=== PATIENT | male | born 1955 | race Caucasian/White ===

== ENCOUNTER 2024-02-05 11:51 | Inpatient (IN) | payer MEDICARE, OTHER, SELFPAY ==
[2024-02-05] VITALS (18 sets, daily range): BP systolic 121–148; BP diastolic 60–92; BMI 21.7
[2024-02-05] MEDS: LOW STRENGTH ASPIRIN 81 MG PO (09:11)
[2024-02-05] MEDS: NSS 218 ML IV (09:22)
--- NOTE | 2024-02-05 10:29 | ITS.CL.CATH ---
Shop Assistant - Catheterization
Cardiac Catheterization
Procedure Report:
CARDIAC CATHETERIZATION REPORT
Date of Procedure: 02/05/2024
Referring: Tony Borja MD
Indication: High risk stress test with known CAD and risk factors
HEMODYNAMIC DATA
AO: 121/62
LV: 121/10
LEFT VENTRICULOGRAPHY: The left ventricle is mildly dilated. There is moderate inferoapical hypokinesis. The LVEF is 46%
CORONARY ANGIOGRAPHY
Dominance: Right
Left Main: 50-60% distal stenosis
LAD: The LAD is calcified with 50% proximal and 70% mid stenoses. The distal LAD is free of disease. D1 is moderate in size with trivial luminal disease. D2 is slightly larger than D1 with 30% ostial stenosis
Circumflex: There is a medium sized ramus intermedius with mild disease. There is 40% ostial circumflex stenosis. There is 50% mid circumflex stenosis distal to the origin of a small OM1 and proximal to the takeoff of a medium sized OM 2. The
circumflex terminates with a very small OM 3.
RCA: The RCA is a large dominant severely calcified vessel. There are 2 stents placed at a hospital in [place] in 2011 and the mid RCA. It is not possible to know with certainty whether there is a gap between the stents due to the severity of
the calcification. There is 99% stenosis in the mid RCA possibly at the gap segment with MARQUISE grade II flow into a large PDA.
The RCA terminates with two moderate size posterolateral branches.
Closure Device: None-the procedure was performed via the right radial artery. The Ziggy's test was normal prior to the procedure.
Radiation (mGy): 225
DAP (cm2.Gy): 15.1
Fluoroscopy time: 2.0 minutes
CONCLUSIONS
1: Left ventricular enlargement with moderate inferoapical hypokinesis with EF 46%
2: Severe multivessel CAD as described
3. Recommend inpatient CABG with grafting of LAD, either D1 or D2, OM 2, and RPDA
Copy to: Tony Borja MD, Cristina Emerson MD
Kofi Sun MD, FAC, [facility]
[2024-02-05] MEDS: NORVASC 10 MG PO (12:09)
--- NOTE | 2024-02-05 12:48 | CONSULT.CT ---
Consultation
-
Date/Time Consultation Requested: 02/05/24
Date/Time Consultation Performed: 02/05/24 1300
Requesting Provider: Dr. Kofi Sun MD.
Performing Provider: Violeta Wilson PA-C
Reason for Consultation: Severe MV CAD evaluate for coronary artery revascularization
Patient History
Physicians
Family Physician: Dr. Cristina Emerson MD.
Outpatient Chucking And Sawing Machine Operator: Dr. Tony Borja MD.
Inpatient Chucking And Sawing Machine Operator: [facility]-Dr. Kofi Sun MD.
History of Present Illness
Please note this dictation was performed using the aid of a language line due to the fact that the patient is [place]-speaking only.
Patient is extremely pleasant 68-year-old male with a PMH significant for CAD s/p PR and mult. MILES, PR 05/14/2012 requiring MILES x 2 RCA, HTN, HLD, and Tobacco abuse (current everyday smoker 1PPD x 40 yrs) who presents to [facility] today
02/05/24 for elective outpatient cardiac catheterization.
Patient follows with Dr. Tony Borja MD. of cardiology. Patient was seen in the office by Dr. Borja on 01/27/24 after an abnormal exercise stress echo. Patient formally denies any exertional chest discomfort or shortness of breath. However,
per chart review it states he has been experiencing exertional chest discomfort as well as exertional shortness of breath. He was scheduled for an elective outpatient cardiac catheterization at [facility] for today.
Subsequent cardiac catheterization revealed multivessel coronary artery disease. Please see results of diagnostic studies below. CT surgery was consulted for coronary artery revascularization. In speaking with the patient, it appears that he at
some point underwent questionable vascular surgery/vein stripping. Patient also states that prior to this hospitalization he was being worked up by GI for his elevated transaminases with an AST of 89, and ALT of 95, and alk phos of 123. He states
that he was told he had an enlarged liver.
Cardiac catheterization 02/05/24: [facility]
EF 46%
LM: 50-60% distal
LAD: 50% prox, 70% mid.
D1: trivial LI
D2: 30% ostial
RI: medium sized with mild disease
LCx: 40% ostial, 50% mid
RCA: MILES x2 to mid RCA. 99% mid RCA stenosis at the gap segment with MARQUISE grade II flow into large PDA
EK02/05/24
SB (57) 1st AVB, PAC's, non-specific intra-ventricular conduction block
Stress Echo 01/27/24: Tony Borja MD.
EF 55-60%
No segmental wall motion abnormalities with akinesis at peak exercise of inferior wall hypokinesis of inferior lateral wall.
Overall imaging part of the stress test is positive for ischemia
Past Medical History
Past Medical History: Other (HTN)
H/o CAD s/p PR and mult MILES
PR 05/14/2012 requiring MILES x2 RCA
HTN/HLD
Tobacco abuse, current smoker, 1 PDD x40 yrs
Past Surgical History
PCI with MILES x 2 RCA 05/14/2012 [facility]
Appendectomy
Questionable vein stripping left leg > right
Dental History
Noncontributory
Family History
Mother: at Age (80) and Cause of (Cardiac-unknown to what extent)
Father: at Age (77)
Family Medical History: CAD
Social History
Alcohol: Occasional (2-3 vodka/wk)
Drug: None
Tobacco: Smoker (Current everyday smoker (1 PPD x 40+ yrs).)
Personal: Other ( from . Lives with roommate. Has 1 daughter)
Living: With Roomate
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
Allergies
Allergy/AdvReac Type Severity Reaction Status Date / Time
No Known Drug Allergies Allergy nkda Verified 06/06/24 09:29
Home Medications
�Medication �Instructions �Recorded �Confirmed �Type
amlodipine 10 mg tablet 10 mg PO DAILY Blood Pressure 02/05/24 02/05/24 History
aspirin 81 mg chewable tablet 81 mg PO DAILY Blood Clot 02/05/24 02/05/24 History
Prevention/Tx
atorvastatin 40 mg tablet 40 mg PO QPM High Cholesterol 02/05/24 02/05/24 History
cholecalciferol (vitamin D3) 50 50 mcg PO DAILY Supplement 02/05/24 02/05/24 History
mcg (2,000 unit) tablet (Vitamin
D3)
folic acid 1 mg tablet 1 mg PO DAILY Supplement 02/05/24 02/05/24 History
metoprolol succinate 50 mg 50 mg PO DAILY Blood Pressure 02/05/24 02/05/24 History
tablet,extended release 24 hr
ramipril 10 mg tablet 10 mg PO BID Blood Pressure 02/05/24 02/05/24 History
sertraline 100 mg tablet 100 mg PO DAILY Depression 02/05/24 02/05/24 History
vitamin B complex 1 cap PO DAILY Supplement 02/05/24 02/05/24 History
Review of Systems
-
History Source: Patient
General: Denies Fever, Weight Gain, Weight Loss or Fatigue
HEENT: Denies Visual Changes, Dysphagia or Hoarseness
Respiratory: Reports Cough; Denies SOB, WIGGINS, Asthma or PND
Cardiac: Reports CAD; Denies Chest Pain, Known Vascular Disease, Palpitations, Diaphoresis or Edema
Abdomen/GI: Reports Ulcers (Resolved-treated medically); Denies Abdominal Pain, Reflux, Indigestion, Nausea, Vomiting or BRBPR
: Denies Dysuria, Frequency, Hematuria or Nocturia
Musculoskeletal: Denies Myalgias, Arthralgias or Joint Pain
Skin: Denies Rash
Neurological: Denies CVA, TIA, Headaches, Syncope or Seizures
Vascular: Reports Claudication and PVD
Physical Exam
Vital Signs
Temp 97.8 F 02/05/24 09:01
Pulse 51 02/05/24 12:23
Resp Rate 19 02/05/24 08:48
Blood pressure 126/61 02/05/24 12:23
Blood pressure extremity used: Left upper arm 02/05/24 10:16
Position: Lying 02/05/24 10:16
MAP (cuff-Uzma Monitor) 83 02/05/24 12:23
SaO2 96 02/05/24 12:23
Oxygen Mode of Delivery Room air 02/05/24 10:16
Can the patient verbally communicate their pain? Yes 02/05/24 10:16
Actual Weight 160 lb 0.889 oz 02/05/24 09:14
Body Mass Index (BMI) 21.7 02/05/24 09:14
Diagnostic Studies
Cardiac catheterization 02/05/24: [facility]
EF 46%
LM: 50-60% distal
LAD: 50% prox, 70% mid.
D1: trivial LI
D2: 30% ostial
RI: medium sized with mild disease
LCx: 40% ostial, 50% mid
RCA: MILES x2 to mid RCA. 99% mid RCA stenosis at the gap segment with MARQUISE grade II flow into large PDA
EK02/05/24
SB (57) 1st AVB, PAC's, non-specific intra-ventricular conduction block
Stress Echo 01/27/24: Tony Borja MD.
EF 55-60%
No segmental wall motion abnormalities with akinesis at peak exercise of inferior wall hypokinesis of inferior lateral wall.
Overall imaging part of the stress test is positive for ischemia
Exam
General: Well Developed, Well Nourished and No Apparent Distress
HEENT: Normocephalic, Moist Mucous Membranes, Atraumatic, PERRLA and EOMI
Neck: Trachea Midline; Negative Carotid Bruit or Mass
Respiratory: Clear; Negative Wheezes, Crackles, Rhonchi or Accessory Muscle Use
Cardiac: S1/S2 and Regular Rhythm (Sinus bradycardia/); Negative Murmur, Rub or Gallop
GI: Non Tender, Non Distended and Normal Bowel Sounds
Rectal: Deferred by Provider
Skin: Warm and Dry; Negative Rash
Neuro: AO x 3, No Motor Deficits and CN X-XII Intact
Extremities: Negative Upper Level Edema, Lower Level Edema, Upper Level Cyanosis, Lower Level Cyanosis, Upper Level Clubbing or Lower Level Clubbing
Psych: Calm
Assessment / Plan
-
Assessment:
69 y/o male with PMH significant for:
H/o CAD s/p PR and mult MILES
PR 05/14/2012 requiring MILES x2 RCA
HTN/HLD
Tobacco abuse, current smoker, 1 PDD x40 yrs
Now newly diagnosed with:
Severe MV CAD
Abnormal stress echocardiogram
EF 46%
elevated LFT's/transaminases (AST 89, ALT 95, Alk Phos 123), enlarged liver
? vascular procedure/vein stripping (left leg > right)
Plan:
Patient's case will be discussed with attending physician Dr. Luis Daniel Tellez MD.
Preoperative cardiothoracic surgery workup will be initiated.
We will also add on bilateral saphenous vein mapping, CT scan of the chest abdomen and pelvis given enlarged liver, and PFTs given smoking history.
STS risk stratification score will be calculated.
Further workup regarding procedure will be determined after attending physicians full review
[2024-02-05 14:11] LABS: Hematocrit 40.1 % (39.0-52.0); Hemoglobin 13.5 g/dL (13.0-18.0); Mean Corp Hgb Conc. 33.7 g/dL (33.0-37.0); Mean Corpuscular Hgb 31.4 pg (27.0-31.0); Mean Corpuscular Volume 93.3 fL (80.0-94.0); Mean Platelet Volume 9.3 fL (7.4-10.4); Platelet Count 253 10^3/uL (130-400); Red Cell Dist. Width 12.8 % (11.5-14.5); White Blood Cell Count 5.4 10^3/uL (4.8-10.8)
[2024-02-05 14:22] LABS: APTT 28.6 Sec (23.4-35.0)
[2024-02-05] MEDS: HEPARIN 25000 UNITS/250 ML IV (15:01)
[2024-02-05 15:38] LABS: B.E. -1.6 mmol/L; HCO3 21.7 mmol/L (21-28); O2 Saturation % 96.9 % (94-98); PCO2 32 mmHg (35-48); PO2 77 mmHg (83-108); pH 7.44 (7.35-7.45)
[2024-02-05 16:01] LABS: ALT (SGPT) 113 U/L (0-50); AST (SGOT) 100 U/L (17-59); Albumin 3.9 g/dl (3.5-5.0); Alkaline Phosphatase 112 U/L (38-126); Blood Urea Nitrogen 13 mg/dl (9-20); Calcium 9.8 mg/dl (8.4-10.2); Carbon Dioxide 23 mmol/L (22-30); Chloride 107 mmol/L (98-107); Direct Bilirubin 0.4 mg/dl (0.0-0.4); Estimated Creatinine Clearance 118 ml/min; Glucose 91 mg/dl (70-99); Potassium 4.1 mmol/L (3.5-5.1); Sodium 138 mmol/L (135-145); Total Bilirubin 0.7 mg/dl (0.2-1.3); Total Protein 6.8 g/dl (6.3-8.2); eGFR > 60.00
[2024-02-05] MEDS: LIPITOR 40 MG PO (17:53)
[2024-02-05] MEDS: ALTACE 10 MG PO (19:51)
[2024-02-05 21:51] LABS: APTT 35.6 Sec (23.4-35.0)
--- NOTE | 2024-02-05 22:31 | PTCARENOTE ---
Stateless speaking at baseline- language line used. pt verbalized understanding. SB on the monitor. ambulating as self. heparin gtt running as documented. R radial CDI
[2024-02-06] VITALS (7 sets, daily range): BP systolic 121–145; BP diastolic 62–86; BMI 21.6
[2024-02-06 00:23] LABS: INR 0.98
[2024-02-06 04:56] LABS: Hematocrit 36.7 % (39.0-52.0); Mean Corp Hgb Conc. 35.4 g/dL (33.0-37.0); Mean Corpuscular Hgb 31.5 pg (27.0-31.0); Mean Corpuscular Volume 88.9 fL (80.0-94.0); Mean Platelet Volume 9.3 fL (7.4-10.4); Platelet Count 226 10^3/uL (130-400); Red Blood Cell Count 4.13 10^6/uL (4.70-6.10); Red Cell Dist. Width 12.5 % (11.5-14.5); White Blood Cell Count 5.2 10^3/uL (4.8-10.8)
[2024-02-06 05:09] LABS: APTT 38.4 Sec (23.4-35.0)
[2024-02-06 05:22] LABS: Blood Urea Nitrogen 11 mg/dl (9-20); Calcium 9.2 mg/dl (8.4-10.2); Carbon Dioxide 22 mmol/L (22-30); Chloride 107 mmol/L (98-107); Estimated Creatinine Clearance 118 ml/min; Glucose 102 mg/dl (70-99); HDL Cholesterol 81 mg/dl; LDL Cholesterol, Calculated 38 mg/dl; Potassium 3.9 mmol/L (3.5-5.1); Sodium 137 mmol/L (135-145); Total Cholesterol 139 mg/dl (50-199); Triglyceride 104 mg/dl (10-149); Very Low Density Lipoprotein 20 mg/dl (0-30); eGFR > 60.00
[2024-02-06] MEDS: NORVASC 10 MG PO (08:57)
[2024-02-06] MEDS: FOLVITE 1 MG PO (08:57)
[2024-02-06] MEDS: LOW STRENGTH ASPIRIN 81 MG PO (08:57)
[2024-02-06] MEDS: TOPROL XL 50 MG PO (08:58)
[2024-02-06] MEDS: ALTACE 10 MG PO ×2 (09:01→19:33)
[2024-02-06] MEDS: ZOLOFT 100 MG PO (09:02)
[2024-02-06 09:47] LABS: Glycohemoglobin (HgbA1c) 5.4 % (4.0-5.6)
--- NOTE | 2024-02-06 09:56 | W.PN.CD ---
Today's Communication / Plan
-
Cont medications
Preop testing
Impression / Plan
-
S: 68-year-old male with a PMH significant for CAD s/p [place] and mult. MILES, [place] 05/14/2012 requiring MILES x 2 RCA, HTN, HLD, and Tobacco abuse (current everyday smoker 1PPD x 40 yrs) who presents to [facility] today 02/05/24 for elective
outpatient cardiac catheterization. He was found to have multi-vessel CAD and CTS has been consulted for possible CABG with grafting of LAD, either D1 or D2, OM 2, and RPDA.
CAD s/p PCI and now multivessel
- possible CABG February 08
- cont statin aspirin and metoprolol
HTN
- metoprolol amlodipine
- Ramipril will need to be held prior to CTS
HLD
- statin
Elevated LFTs
- cont monitoring
Subjective
Feels OK used hourly sign language interpreter line all questions answered
Physical Exam
Vital Signs/Labs
Vital Signs
Temp Pulse Resp BP Pulse Ox
98.0 F 61 16 145/74 98
02/06/24 07:55 02/06/24 07:56 02/06/24 07:55 02/06/24 07:56 02/05/24 22:26
02/05/24 02/06/24 02/07/24
06:59 06:59 06:59
Actual Weight 160 lb 0.889 oz
02/06/24 04:47
02/06/24 04:47
PT Cancelled 02/06/24 04:15
INR Cancelled 02/06/24 04:15
APTT 38.4 Sec (23.4-35.0) H 02/06/24 04:47
Triglycerides 104 mg/dl (10-149) 02/06/24 04:47
LDL Cholesterol, Calc 38 mg/dl 06/07/24 04:47
VLDL Cholesterol, Calc 20 mg/dl (0-30) 02/06/24 04:47
HDL Cholesterol 81 mg/dl 02/06/24 04:47
Physical Exam
Constitutional: No acute distress
EENT: Anicteric
Cardiovascular: Rhythm & rate is regular and Pedal edema is absent
Respiratory: Respiratory effort normal and Lungs clear to auscul.
GI: Soft
Neuro/Psych: AO x 3
Data Reviewed
-
Date of Service: February 06, 2024
Medical Decision Making: Reviewed Test Results
EKG: Tracing Personally Visualized and interpreted (sr)
Echo: Report Reviewed by me
Labs: Labs Reviewed by me
--- NOTE | 2024-02-06 13:26 | W.PN.UPDATE ---
Addendum entered and electronically signed by Luis Daniel Tellez MD 02/06/24 15:42:
CARDIAC SURGERY ATTENDING:
I had a long conversation with Mr. Lucille Vergara at his bedside this afternoon. This was aided with paraprofessional interpreter #[id number]. I reviewed his surgical pathology, the proposed operative interventions, the associated perioperative risks (including, but
not limited to, , stroke, AR, arrhythmia, PNA, RADU/F, bleeding, infection, and need for additional surgery), the expected in-hospital postprocedural course, and expected outpatient recovery. His STS risks are as outlined below. I agree with
my interventional cardiology colleagues that ideal revascularization would include his LAD, OM 2, PDA, and either D1 or D2. However, the patient has significant potential conduit issues. His left lower extremity greater saphenous vein has been
previously removed. His right lower extremity greater saphenous vein on mapping is quite small with sizes ranging from 0.11 to 0.23 cm. His left Ziggy did demonstrate potential for left radial arterial use, which may be an ideal candidate as a
graft to his PDA, but will require additional assessment preoperatively. I have ordered a left upper extremity radial artery ultrasound. Alternatively, JAREK use can be considered, but given his COPD, in situ JAREK to his RCA may not be possible. I
have discussed these conduit concerns with my interventional cardiology colleagues. We agreed that grafting to his LAD and PDA are the most critical. If intraoperatively, conduit concerns limit bypass to only these 2 vessels, his additional CAD
could potentially be managed with PCI.
I have scheduled him for surgery on 02/09/2024.
Thank you for the opportunity to participate in the care of this patient.
Luis Daniel Tellez MD
[phone]
Original Note:
Update Note
Progress Note Update
Patient scheduled for Surgery on FridayFebruary 08, with Dr. Tellez. Consent obtained
Procedure Type:�Isolated CABG
PERIOPERATIVE OUTCOME ESTIMATE %
Operative Mortality 0.71%
Morbidity & Mortality 3.77%
Stroke 0.512%
Renal Failure 0.349%
Reoperation 2.37%
Prolonged Ventilation 1.72%
Deep Sternal Wound Infection 0.09%
Long Hospital Stay (>14 days) 1.84%
Short Hospital Stay (<6 days)* 62.5%
Clinical Summary
Planned Surgery: Isolated CABG, Urgent, First cardiovascular surgery
Demographics: 69 year old, White, male, 72.6kg, 183cm, BMI: 21.7 kg/m�
Lab Values: Creatinine: 0.5 mg/dL, Hematocrit: 36.7%, WBC Count: 5.2 10�/�L, Platelet Count: 388109 cells/�L
Substance Abuse: Current smoker, Alcohol use: 2-7 drinks/week
Risk Factors / Comorbidities: Hypertension, Family Hx of CAD
Pulmonary RF: Mild CLD
Cardiac Status: Ejection Fraction = 51%
Coronary Artery Disease: 3 vessels diseased, Left Main Stenosis >=50%, Unstable Angina
Valve Disease: Mild AR, Moderate MR, Trivial/Trace TR
[2024-02-06] MEDS: HEPARIN 25000 UNITS/250 ML IV (14:12)
--- NOTE | 2024-02-06 14:52 | CM ---
Chart reviewed. Patient is [place] speaking, trap operator IPAD was used to communicate with the patient. Patient is independent of ADLS, lives alone in a apartment on the 2nd floor, full flight of stairs to get to the 2nd floor, 0 DME. Patient is
going for a CABG 02/08. Patient has a supportive friend who lives in the apartment complex and an ex who may be able to check in on the patient. Reviewed preoperative and postoperative instructions and restrictions, along with showering
guidelines. Gave patient the cardiac surgery book. Patient may be outside of the driving radius for CT Transitional RN, so may need VN. Plan is for the patient to return to his apartment. CM to follow
[2024-02-06] MEDS: LIPITOR 40 MG PO (17:55)
[2024-02-07] VITALS (7 sets, daily range): BP systolic 103–122; BP diastolic 60–78; BMI 21.6
[2024-02-07 02:50] LABS: Hematocrit 38.1 % (39.0-52.0); Mean Corp Hgb Conc. 34.1 g/dL (33.0-37.0); Mean Corpuscular Hgb 31.3 pg (27.0-31.0); Mean Corpuscular Volume 91.8 fL (80.0-94.0); Mean Platelet Volume 9.6 fL (7.4-10.4); Platelet Count 230 10^3/uL (130-400); Red Blood Cell Count 4.15 10^6/uL (4.70-6.10); Red Cell Dist. Width 12.3 % (11.5-14.5)
[2024-02-07] MEDS: HEPARIN 25000 UNITS/250 ML IV ×2 (05:52→21:49)
--- NOTE | 2024-02-07 05:57 | PTCARENOTE ---
pt pleasant and cooperative. denies chest pain or discomfort.heparin drip infusing as ordered. no acute distress.
[2024-02-07] MEDS: ALTACE 10 MG PO (09:05)
[2024-02-07] MEDS: FOLVITE 1 MG PO (09:06)
[2024-02-07] MEDS: ZOLOFT 100 MG PO (09:06)
[2024-02-07] MEDS: LOW STRENGTH ASPIRIN 81 MG PO (09:06)
[2024-02-07] MEDS: NORVASC 10 MG PO (09:06)
[2024-02-07] MEDS: TOPROL XL 50 MG PO (09:06)
[2024-02-07 09:46] LABS: APTT 94.1 Sec (23.4-35.0)
--- NOTE | 2024-02-07 14:48 | W.PN.CD ---
Today's Communication / Plan
-
-Scheduled for CABG on 02/09/2024.
-Continue heparin drip.
Impression / Plan
-
S: 68-year-old male with a PMH significant for CAD s/p RI and mult. MILES, RI 05/14/2012 requiring MILES x 2 RCA, HTN, HLD, and Tobacco abuse (current everyday smoker 1PPD x 40 yrs) who presents to [facility] today 02/05/24 for elective
outpatient cardiac catheterization. He was found to have multi-vessel CAD and CTS has been consulted for possible CABG with grafting of LAD, either D1 or D2, OM2, and RPDA.
CAD s/p PCI and now multivessel
-Scheduled for CABG on 02/09/2024.
-Continue heparin drip.
-Continue aspirin, atorvastatin, and Toprol-XL.
-cafeteria monitor.
HTN
-Controlled on current medications; continue.
- Ramipril being held prior to CTS.
HLD
-Continue atorvastatin.
Elevated LFTs
- cont monitoring
Subjective
No major events overnight. No cardiac complaints today.
Physical Exam
Vital Signs/Labs
Vital Signs
Temp Pulse Resp BP Pulse Ox
98.2 F 54 18 118/73 94
02/07/24 12:29 02/07/24 09:00 02/07/24 12:29 02/07/24 07:43 02/07/24 12:29
02/06/24 02/07/24 02/08/24
06:59 06:59 06:59
Actual Weight 72.3 kg 72.3 kg
02/07/24 02:34
02/06/24 04:47
PT Cancelled 02/06/24 04:15
INR Cancelled 02/06/24 04:15
APTT 94.1 Sec (23.4-35.0) H 02/07/24 09:26
Triglycerides 104 mg/dl (10-149) 02/06/24 04:47
LDL Cholesterol, Calc 38 mg/dl 02/06/24 04:47
VLDL Cholesterol, Calc 20 mg/dl (0-30) 02/06/24 04:47
HDL Cholesterol 81 mg/dl 02/06/24 04:47
Physical Exam
Constitutional: No acute distress and Comfortable
EENT: Anicteric
Cardiovascular: Rhythm & rate is regular, Pedal edema is absent, Systolic murmur absent and S1S2 is normal
Respiratory: Respiratory effort normal and Lungs clear to auscul.
GI: Soft
Neuro/Psych: AO x 3
Other: Skin (Warm, dry, intact)
Data Reviewed
-
Date of Service: February 07, 2024
EKG: Tracing Personally Visualized and interpreted (Telemetry: Sinus rhythm)
Labs: Labs Reviewed by me
[2024-02-07] MEDS: LIPITOR 40 MG PO (16:35)
--- NOTE | 2024-02-07 23:36 | PTCARENOTE ---
Pt received at start of shift, HR SR w/ 1st degree HB and BBB. Heparin infusing at 1650u/hr. [employer] Laboratory Assistant ipad used to update pt on plan of care, pt states understanding. Pt denies any CP or SOB. Informed to notify RN if any changes, call tena within
reach.
--- NOTE | 2024-02-08 04:36 | W.PN.CT ---
Addendum entered and electronically signed by Luis Daniel Tellez MD 02/08/24 09:11:
I saw and examined the patient.
The PA's note was reviewed and I agree with the note.
Comment:
OR tomorrow for CABG
Minor conduit concerns d/w my cardiology colleagues
Pt w/ COPD
STS as calculated
Plan CUAUHTEMOC to LAD, L RA to RCA, and GSV to OM/D - RLE GSV is quite small on mapping; LLE is surgically absent
Original Note:
Today's Communication / Plan
-
Plan:
-Cont. current medical management per primary team
-Cont. heparin gtt, will d/c optimization engineer to OR
-Avoid SHYAM-I/ARBs in preparation for CABG
-Ongoing preop evaluation/medical optimization
-For CABG tomorrow 02/[address] Tellez
-Will cont. to closely monitor
Assessment / Plan
-
Assessment:
-Multivessel CAD including 50-60% distal LM
-Abnormal stress test
-Hx inferior [place] S/P MILES x2 to RCA, 05/14/2012 @ [place], [place]
-Sinus bradycardia with 1st deg AVB
-LVEF 51% per echo 02/05/24
-HTN
-HLD
-Active tobacco abuse (40 pk/yr)
-Left GSV is surgically absent, thrombosed left small saphenous vein, per vein mapping obtained 02/05/24
-S/P Appendectomy
Discussed patient care with: Cardiology, Nursing, Pharmacy and Care Team
Subjective
-
Date of Service: February 08, 2024
No issues overnight. Denies CP/SOB overnight
Objective Data
-
PT Cancelled 02/06/24 04:15
INR Cancelled 02/06/24 04:15
APTT 94.1 Sec (23.4-35.0) H 02/07/24 09:26
Vital Signs
Vital Signs
Temp Pulse Resp BP Pulse Ox
97.6 F 45 18 122/78 94
02/07/24 22:51 02/08/24 03:00 02/07/24 22:51 02/07/24 22:49 02/07/24 22:51
CT Intake/Output/Weight
02/07/24 02/07/24 02/08/24
06:59 18:59 06:59
Intake Total 480 / 480
Balance 480 / 480
SaO2: 94 (RA)
Physical Exam
-
General: Awake, Oriented and AOx3
Cardiovascular: Regular rate & rhythm (sinus bradycardia) and No Murmurs
Respiratory: Clear
Extremities: No Edema
Data Reviewed
-
Lab Results: Results Reviewed
Medications: Active Meds Reviewed
Chest X-Ray: Report Reviewed and Image Reviewed
ECG: Report Reviewed and Image Reviewed
[2024-02-08 05:05] VITALS: BP 118/70
[2024-02-08 05:14] VITALS: BMI 21.4
[2024-02-08 05:55] LABS: Hematocrit 39.1 % (39.0-52.0); Hemoglobin 13.6 g/dL (13.0-18.0); Mean Corp Hgb Conc. 34.8 g/dL (33.0-37.0); Mean Corpuscular Hgb 31.2 pg (27.0-31.0); Mean Corpuscular Volume 89.7 fL (80.0-94.0); Mean Platelet Volume 9.8 fL (7.4-10.4); Platelet Count 240 10^3/uL (130-400); Red Blood Cell Count 4.36 10^6/uL (4.70-6.10); Red Cell Dist. Width 12.5 % (11.5-14.5); White Blood Cell Count 6.5 10^3/uL (4.8-10.8)
[2024-02-08 06:04] LABS: APTT 80.8 Sec (23.4-35.0)
[2024-02-08 06:05] LABS: ALT (SGPT) 135 U/L (0-50); AST (SGOT) 99 U/L (17-59); Albumin 3.8 g/dl (3.5-5.0); Alkaline Phosphatase 106 U/L (38-126); Blood Urea Nitrogen 14 mg/dl (9-20); Calcium 9.9 mg/dl (8.4-10.2); Carbon Dioxide 23 mmol/L (22-30); Chloride 104 mmol/L (98-107); Estimated Creatinine Clearance 116 ml/min; Glucose 103 mg/dl (70-99); Potassium 4.3 mmol/L (3.5-5.1); Sodium 137 mmol/L (135-145); Total Bilirubin 0.5 mg/dl (0.2-1.3); Total Protein 6.6 g/dl (6.3-8.2); eGFR > 60.00
[2024-02-08 07:39] VITALS: BP 125/77
[2024-02-08] MEDS: TOPROL XL 50 MG PO (09:17)
[2024-02-08] MEDS: NORVASC 10 MG PO (09:17)
[2024-02-08] MEDS: FOLVITE 1 MG PO (09:17)
[2024-02-08] MEDS: LOW STRENGTH ASPIRIN 81 MG PO (09:18)
[2024-02-08] MEDS: ZOLOFT 100 MG PO (09:18)
--- NOTE | 2024-02-08 09:37 | PTCARENOTE ---
Assumed care of pt from night RN. Pt received awake and alert, Ox3. VSs, CM shows NSR with BBB 70's, POX 94% on RA. Right wrist ACCOUNT RESOLUTION SPECIALIST with normal CMS. Heparin infusing through LA at 1600 units/hr, levels remain therapeutic. He denies any pain or
discomfort at this time. Scheduled for CVOR tomorrow.
[2024-02-08 10:53] VITALS: BP 134/74
[2024-02-08] MEDS: HEPARIN 25000 UNITS/250 ML IV (13:14)
--- NOTE | 2024-02-08 14:29 | W.PN.CD ---
Today's Communication / Plan
-
-Scheduled for CABG tomorrow 02/09/2024.
-Continue heparin drip.
Impression / Plan
-
S: 68-year-old male with a PMH significant for CAD s/p [place] and mult. MILES, [place] 05/14/2012 requiring MILES x 2 RCA, HTN, HLD, and Tobacco abuse (current everyday smoker 1PPD x 40 yrs) who presents to [facility] today 02/05/24 for elective
outpatient cardiac catheterization. He was found to have multi-vessel CAD and CTS has been consulted for possible CABG with grafting of LAD, either D1 or D2, OM2, and RPDA.
CAD s/p PCI and now multivessel
-Scheduled for CABG tomorrow 02/09/2024.
-Continue heparin drip.
-Continue aspirin, atorvastatin, and Toprol-XL.
-Continue snapper on.
HTN
- Remains controlled on current medications; continue.
- Ramipril being held prior to CTS.
HLD
-Continue atorvastatin.
Elevated LFTs
- cont monitoring
Subjective:
No events overnight. No cardiac complaints.
Physical Exam
Vital Signs/Labs
Vital Signs
Temp Pulse Resp BP Pulse Ox
97.9 F 57 20 134/74 94
02/08/24 10:53 02/08/24 12:00 02/08/24 10:53 02/08/24 10:53 02/08/24 10:53
02/07/24 02/08/24 02/09/24
06:59 06:59 06:59
Actual Weight 72.3 kg 71.6 kg
02/08/24 05:12
02/08/24 05:12
PT Cancelled 02/06/24 04:15
INR Cancelled 02/06/24 04:15
APTT 80.8 Sec (23.4-35.0) H 02/08/24 05:12
Triglycerides 104 mg/dl (10-149) 02/06/24 04:47
LDL Cholesterol, Calc 38 mg/dl 02/06/24 04:47
VLDL Cholesterol, Calc 20 mg/dl (0-30) 02/06/24 04:47
HDL Cholesterol 81 mg/dl 02/06/24 04:47
Physical Exam
Constitutional: No acute distress and Comfortable
EENT: Anicteric
Cardiovascular: Rhythm & rate is regular, Pedal edema is absent, Systolic murmur absent and S1S2 is normal
Respiratory: Respiratory effort normal and Lungs clear to auscul.
GI: Soft
Neuro/Psych: AO x 3
Other: Skin (Warm, dry, intact)
Data Reviewed
-
Date of Service: February 08, 2024
EKG: Tracing Personally Visualized and interpreted (Telemetry: Sinus rhythm)
[2024-02-08 16:10] VITALS: BP 124/69
[2024-02-08] MEDS: LIPITOR 40 MG PO (18:03)
--- NOTE | 2024-02-08 19:18 | PTCARENOTE ---
[facility] Report given to LORENE Chaidez.
--- NOTE | 2024-02-08 20:00 | PTCARENOTE ---
report received from IVU RN @ 1900, pt received into room 2262. pt AAOx4, pt denies any pain. Heparin gtt infusing per protocol via PIV. NSR on monitor, HR 60's-70's. POX 96% on room air. clip prep done. 1st shower w surgical soap completed. pt now
resting comfortably in bed. see worklist for full assessment, VS, and interventions.
[2024-02-08 20:50] VITALS: BP 138/75
[2024-02-08 23:02] VITALS: BP 120/62
[2024-02-09] VITALS (14 sets, daily range): BP systolic 88–119; BP diastolic 46–69; BMI 21.5
--- NOTE | 2024-02-09 03:00 | PTCARENOTE ---
pt VSS. SR/SB on monitor. POX 97% on room air. Heparin gtt maintained per protocol. AM labs drawn and sent. pt sleeping between care.
[2024-02-09 03:09] LABS: Hematocrit 38.9 % (39.0-52.0); Hemoglobin 13.6 g/dL (13.0-18.0); Mean Corpuscular Hgb 31.2 pg (27.0-31.0); Mean Corpuscular Volume 89.2 fL (80.0-94.0); Mean Platelet Volume 9.5 fL (7.4-10.4); Platelet Count 251 10^3/uL (130-400); Red Blood Cell Count 4.36 10^6/uL (4.70-6.10); Red Cell Dist. Width 12.6 % (11.5-14.5); White Blood Cell Count 8.4 10^3/uL (4.8-10.8)
[2024-02-09 03:23] LABS: APTT 102.9 Sec (23.4-35.0)
[2024-02-09] MEDS: PROTONIX 40 MG PO (06:02)
[2024-02-09] MEDS: MAGNESIUM OXIDE 500 MG PO (06:02)
[2024-02-09] MEDS: LOPRESSOR 25 MG PO (06:02)
[2024-02-09] MEDS: BACTROBAN 2% OINTMENT 1 APPLIC NASAL ×2 (06:03→21:14)
[2024-02-09 08:21] LABS: ACT+ - POC 109 Seconds (82-134)
[2024-02-09 08:26] LABS: B.E. - POC -3.6 mmol/L; Glucose - POC 121 mg/dl (65-99); HCO3 - POC 22 mmol/L (21-29); Hematocrit - POC 36 % PCV (42-52); Hemodilution- POC No; Hemoglobin Calculated - POC 12.4; Ionized Calcium - POC 1.23 mmol/L (1.12-1.27); O2 Saturation %Calculated-POC 99.7 5 (92-96); PCO2 - POC 38 mmHg (35-45); PO2 - POC 207 mmHg (80-100); Sodium - POC 140 mmol/L (135-145); pH - POC 7.36 (7.35-7.45)
[2024-02-09 08:45] LABS: Urine Albumin Trace (Neg - Trace); Urine Bilirubin Negative (Negative); Urine Character Clear (Clear); Urine Color Yellow; Urine Glucose Negative (Negative); Urine Ketone Negative (Negative); Urine Leukocyte Trace (Negative); Urine Nitrite Negative (Negative); Urine Occult Blood Negative (Negative); Urine Urobilinogen Negative (Neg - 1+)
--- NOTE | 2024-02-09 09:41 | CM ---
pt in OR today, cm to follow
[2024-02-09 09:54] LABS: Urine Amorphous Seen; Urine Red Blood Cell 0-2 /HPF (0-2); Urine White Cell 0-2 /HPF (0-5)
[2024-02-09 10:58] LABS: ACT+ - POC 561 Seconds (82-134)
[2024-02-09 11:28] LABS: ACT+ - POC 457 Seconds (82-134)
[2024-02-09 11:39] LABS: B.E. - POC -0.4 mmol/L; Glucose - POC 158 mg/dl (65-99); HCO3 - POC 24 mmol/L (21-29); Hematocrit - POC 34 % PCV (42-52); Hemodilution- POC Yes; Hemoglobin Calculated - POC 11.6; Ionized Calcium - POC 1.06 mmol/L (1.12-1.27); O2 Saturation %Calculated-POC 99.8 5 (92-96); PCO2 - POC 40 mmHg (35-45); PO2 - POC 222 mmHg (80-100); POC Comment CPB; Potassium - POC 5.4 mmol/L (3.6-5.0); Sodium - POC 142 mmol/L (135-145)
[2024-02-09] MEDS: LOW STRENGTH ASPIRIN PO (12:00)
[2024-02-09] MEDS: ZOLOFT PO (12:00)
[2024-02-09] MEDS: NORVASC PO (12:00)
[2024-02-09] MEDS: FOLVITE PO (12:00)
[2024-02-09 12:11] LABS: B.E. - POC -2.1 mmol/L; Glucose - POC 238 mg/dl (65-99); HCO3 - POC 23 mmol/L (21-29); Hematocrit - POC 35 % PCV (42-52); Hemodilution- POC Yes; Ionized Calcium - POC 1.11 mmol/L (1.12-1.27); O2 Saturation %Calculated-POC 98.8 5 (92-96); PCO2 - POC 41 mmHg (35-45); PO2 - POC 127 mmHg (80-100); POC Comment CPB; Potassium - POC 5.3 mmol/L (3.6-5.0); Sodium - POC 139 mmol/L (135-145); pH - POC 7.37 (7.35-7.45)
[2024-02-09 12:15] LABS: ACT+ - POC 599 Seconds (82-134)
[2024-02-09 12:41] LABS: ACT+ - POC 536 Seconds (82-134)
[2024-02-09 12:42] LABS: B.E. - POC -2.7 mmol/L; Glucose - POC 246 mg/dl (65-99); HCO3 - POC 23 mmol/L (21-29); Hematocrit - POC 36 % PCV (42-52); Hemodilution- POC Yes; Hemoglobin Calculated - POC 12.1; Ionized Calcium - POC 1.13 mmol/L (1.12-1.27); O2 Saturation %Calculated-POC 99.9 5 (92-96); PCO2 - POC 42 mmHg (35-45); PO2 - POC 378 mmHg (80-100); POC Comment REWARM; Potassium - POC 5.1 mmol/L (3.6-5.0); Sodium - POC 140 mmol/L (135-145); pH - POC 7.35 (7.35-7.45)
[2024-02-09 13:09] LABS: B.E. - POC -0.9 mmol/L; Glucose - POC 231 mg/dl (65-99); HCO3 - POC 25 mmol/L (21-29); Hematocrit - POC 33 % PCV (42-52); Hemodilution- POC Yes; Hemoglobin Calculated - POC 11.3; Ionized Calcium - POC 1.11 mmol/L (1.12-1.27); O2 Saturation %Calculated-POC 99.9 5 (92-96); PCO2 - POC 44 mmHg (35-45); PO2 - POC 318 mmHg (80-100); POC Comment WARM; Potassium - POC 5.1 mmol/L (3.6-5.0); Sodium - POC 139 mmol/L (135-145); pH - POC 7.36 (7.35-7.45)
[2024-02-09 13:11] LABS: ACT+ - POC 473 Seconds (82-134)
[2024-02-09 13:41] LABS: ACT+ - POC 104 Seconds (82-134)
[2024-02-09 13:44] LABS: B.E. - POC 1.5 mmol/L; Glucose - POC 201 mg/dl (65-99); HCO3 - POC 27 mmol/L (21-29); Hematocrit - POC 31 % PCV (42-52); Hemodilution- POC Yes; Hemoglobin Calculated - POC 10.7; Ionized Calcium - POC 1.35 mmol/L (1.12-1.27); O2 Saturation %Calculated-POC 97.6 5 (92-96); PCO2 - POC 43 mmHg (35-45); PO2 - POC 99 mmHg (80-100); POC Comment POST; Potassium - POC 4.1 mmol/L (3.6-5.0); Sodium - POC 144 mmol/L (135-145)
--- NOTE | 2024-02-09 14:12 | W.CVOR.SURPR ---
CVOR Surgeon Immed Pre Op
-
I have examined this patient prior to performance of the scheduled procedure.
The patient's condition is unchanged from the time of the dictated/written History and
Physical and the patient is able to undergo the scheduled procedure.
--- NOTE | 2024-02-09 14:12 | W.IMMPOSTOP ---
Addendum entered and electronically signed by Luis Daniel Tellez MD 02/09/24 15:38:
[id number]
Original Note:
Surgical Immed Post Op Note
-
CARDIAC SURGERY OPERATIVE NOTE:
Preoperative Dx:
Multivessel CAD
COPD
Postoperative Dx:
Same
Procedures:
1) Median sternotomy
2) Takedown of CUAUHTEMOC (narrow pedicle)
3) Endoscopic harvest/prep of L RA
4) Endoscopic harvest/prep of RLE GSV
5) CABG x 4 (CUAUHTEMOC to LAD, L RA to RPDA, GSV to OM2, GSV to D2)
Surgeon:
Luis Daniel Tellez M.D.
Assistants:
Jennifer MayerASammy; endoscopic harvest/prep of L RA
Khanh Salas P.A.-C.; endoscopic harvest/prep of RLE GSV, neurology physician assistant throughout, closure
Anesthesia;
Clemente Aly M.D. and Juan Pablo Sexton, ShadR.N.A.
Perfusion:
Shad CerdaCLisaPLisa; XC: 89min, CPB: 139min
Findings:
CUAUHTEMOC was healthy appearing conduit w/ brisk blood flow, ELD 2.65mm
L RA was healthy appearing conduit w/ ELD 2.75mm
GSV was healthy appearing, but small conduit w/ ELD 1.75-2.25mm
Apical LAD was visible on epicardial surface, distal mid LAD was under approximately 0.5cm of epicardial adipose and scant myocardium, ELD 3.5mm
D1 and D2 were visible on the epicardial surface, D1 was small, D2 was also small, but was amenable to bypass, ELD 1.5mm
OM2 was visible on the epicardial surface, ELD 1.3mm; anastomosis performed over 1.0mm shunt
Excellent flow and backbleeding from all grafts
Pt's lungs were hyperinflated w/ small bullous disease and numerous carbonaceous deposits visible
The patient's sternum was quite friable w/ scant marrow; there was a sternal fracture on the R body of the sternum at ~ 5th ICS - repaired w/ sternal wires
Implants:
CT x 4 (B/L pleural, inferior mediastinal, superior mediastinal)
Sternal wires x 10
Complications;
None
Condition:
54 sinus w/ isoelectric STs. 97/55. 34/22, CVP 17. CO/CI: 3.6/1.9. 97%
GTTS: insulin 2, precedex 0.6, nicardipine 2.5, levophed 6
Stable/guarded to CVICU
[2024-02-09] MEDS: TYLENOL PO (14:22)
[2024-02-09] MEDS: PACERONE PO (14:27)
[2024-02-09] MEDS: NEURONTIN PO (14:27)
--- NOTE | 2024-02-09 14:40 | W.PN.CD ---
Today's Communication / Plan
-
Expectant management post CABG.
Wean vent to extubate.
Wean inotropes/pressors for CI > 2.2, MAP > 65 mmHg.
Pain/Chest tube management per CT surgery.
Impression / Plan
-
Impression/Plan: 68-year-old male with a PMH significant for CAD s/p ME and multiple MILES, ME 05/14/2012 requiring MILES x 2 RCA, HTN, HLD, and Tobacco abuse (current everyday smoker 1PPD x 40 yrs) admitted to [facility] after elective
outpatient cardiac catheterization revealed severe multivessel disease for inpatient CABG.
#CAD
-s/p prior PCI.
-Cath shows multivessel CAD.
-S/P CABG x4 (LIMT to LAD, LRA to RPDA, SVG to OM2, SVG to D2).
-Anticipate routine post operative management.
-Wean vent to extubate.
-Wean pressors/inotropes to CI > 2.2, MAP > 65 mmHg.
-Continue aspirin, atorvastatin when taking PO.
-Pain/Chest Tube management per CT surgery.
#HTN
-Chronic, stable.
-BP medications on hold in the perioperative setting.
#HLD
-Chronic, stable.
-Continue atorvastatin.
#Transaminitis
- Stable.
-Monitor.
Subjective/Interval History:
Underwent CABG earllier today.
DATA:
Cardiac Catheterization, 02/05/2024:
CORONARY ANGIOGRAPHY
Dominance: Right
Left Main: 50-60% distal stenosis
LAD: The LAD is calcified with 50% proximal and 70% mid stenoses. The distal LAD is free of disease. D1 is moderate in size with trivial luminal disease. D2 is slightly larger than D1 with 30% ostial stenosis
Circumflex: There is a medium sized ramus intermedius with mild disease. There is 40% ostial circumflex stenosis. There is 50% mid circumflex stenosis distal to the origin of a small OM1 and proximal to the takeoff of a medium sized OM 2. The
circumflex terminates with a very small OM 3.
RCA: The RCA is a large dominant severely calcified vessel. There are 2 stents placed at a hospital in [place] in 2011 and the mid RCA. It is not possible to know with certainty whether there is a gap between the stents due to the severity of
the calcification. There is 99% stenosis in the mid RCA possibly at the gap segment with MARQUISE grade II flow into a large PDA.
The RCA terminates with two moderate size posterolateral branches.
CONCLUSIONS
1: Left ventricular enlargement with moderate inferoapical hypokinesis with EF 46%
2: Severe multivessel CAD as described
3. Recommend inpatient CABG with grafting of LAD, either D1 or D2, OM 2, and RPDA
TTE, 02/05/2024:
CONCLUSIONS
Normal left ventricular chamber size. Low normal left ventricular systolic
function. Left ventricular ejection fraction is 51% by Galdamez's method. No
gross segmental wall motion abnormalities. Mild concentric left ventricular
hypertrophy. Diastolic function indeterminate.
Top normal right ventricular size. Normal right ventricular function.
Indexed LA volume is mildly abnormal.
Mild to moderate mitral regurgitation.
Mild aortic regurgitation.
Estimated pulmonary artery pressure of 24 mmHg, assuming a right atrial
pressure of 3 mmHg.
Dilated aortic root, 4.6 cm.
No prior study for comparison.
Physical Exam
Vital Signs/Labs
Vital Signs
Temp Pulse Resp BP Pulse Ox
36.8 C 46 18 118/65 97
02/09/24 03:00 02/09/24 07:10 02/09/24 07:10 02/09/24 06:02 02/09/24 03:00
02/08/24 02/09/24 02/10/24
11:59 11:59 11:59
Actual Weight 71.6 kg 72 kg
PT Cancelled 02/06/24 04:15
INR Cancelled 02/06/24 04:15
APTT 102.9 Sec (23.4-35.0) H 02/09/24 02:56
Triglycerides 104 mg/dl (10-149) 02/06/24 04:47
LDL Cholesterol, Calc 38 mg/dl 02/06/24 04:47
VLDL Cholesterol, Calc 20 mg/dl (0-30) 02/06/24 04:47
HDL Cholesterol 81 mg/dl 02/06/24 04:47
Physical Exam
Constitutional: No acute distress and Comfortable
EENT: Anicteric and Moist mucous membranes
Cardiovascular: Rhythm & rate is regular, Pedal edema is absent, JVD pressure is normal, S1S2 is normal and Murmur/rub/gallop absent
Respiratory: Respiratory effort normal, Lungs clear to auscul., Wheeze Absent, Crackles Absent and Rhonchi Absent
GI: Soft, Distention absent, Flat, Non tender and Normal bowel sounds
Neuro/Psych: Other (Intubated, sedated.)
Data Reviewed
-
Date of Service: February 09, 2024
Medical Decision Making: Reviewed Test Results, Test Interpretation and Review of Case with other Provider
EKG: Tracing Personally Visualized and interpreted and Report Reviewed by me
Echo: Report Reviewed by me
X-Ray/CT/US/MRI/NUC/PET: Report Reviewed by me
Medical Tests (PFT, Pathology etc): Image Personally Visualized and interpreted and Report Reviewed by me
Labs: Labs Reviewed by me
--- NOTE | 2024-02-09 14:45 | PTCARENOTE ---
Received patient from [facility]. Pt intubated and sedated on precedex gtt. POX 97% SIMV 60% 14 530 5/6. Pt breathing over the vent at a rate of 15-16. Pt unresponsive at this time PERRLA 2mm brisk. SB with 1st degree AVB and occasional PAC and PVCs with
rates in the 50s. BP supported with levophed gtt. 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 CI 2.34, PA pressures 20s/10s. CVP 5, 250mL albumin and LR bolus administered. Right radial, left ulnar, and
bilateral DP pulses palpable. No edema noted. Right and Left pleural chest tubes y-sited to 1 atrium to -20cm suction draining red fluid. Mediastinal chest tubes x2 y-sited to 1 atrium to -20cm suction draining red fluid. No air leaks, tidaling, or
crepitus noted. Abdomen soft, nontender, hypoactive BS. Mane catheter draining adequate amounts of clear yellow urine. Sternal incision covered with Aquacel-CDI. Chest tube dressing CDI. Left radial harvest site approximated with skin glue, HSYAM
wrap CDI. Right groin puncture site approximated with skin glue. Right SVG harvest site approximated with skin glue and SHYAM wrap CDI. Right IJ cordis intact with swan floated to 49cm. Right radial ivy intact. All lines flushed, leveled, zeroed
with appropriate waveforms. Right AC 20g PIV intact. See MAR for medication administration. See worklist for complete nursing assessment. Post op EKG, labs, and CXR completed.
Gtts on arrival:
Levophed 4mcg/min
Cardene 2.5mg/hr
Precedex 0.6mcg/kg/hr
Insulin 2units/hr
KVO x2.
[2024-02-09 15:02] LABS: Glucose - Point of Care 166 mg/dl (70-99)
--- NOTE | 2024-02-09 15:03 | CON.INTV ---
Consultation
Consultation Request
Date/Time Consultation Requested: 02/09/2024
Date/Time Consultation Performed: 02/09/2024
Requesting Provider: Dr. Tellez
Performing Provider: Dr. Gilson Dale
Reason for Consultation: Status post coronary artery bypass-postoperative ICU care
Medical History
Past Medical History
Past Medical History: Other (See assessment and plan section)
Social History
Tobacco: Smoker (1 pack/day for 40 years)
Alcohol: Occasional
Drug: None
Personal:
Living: With Roomate
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
Family History
Family History: Unable to Obtain
Allergies / Home Medications
Allergies
Allergy/AdvReac Type Severity Reaction Status Date / Time
No Known Drug Allergies Allergy nkda Verified 02/05/24 09:29
Home Medications
�Medication �Instructions �Recorded �Confirmed �Last Taken �Type
amlodipine 10 mg tablet 10 mg PO DAILY Blood Pressure 02/05/24 02/05/24 02/04/24 08:00 History
aspirin 81 mg chewable tablet 81 mg PO DAILY Blood Clot 02/05/24 02/05/24 02/05/24 08:45 History
Prevention/Tx
atorvastatin 40 mg tablet 40 mg PO QPM High Cholesterol 02/05/24 02/05/24 02/04/24 22:00 History
cholecalciferol (vitamin D3) 50 50 mcg PO DAILY Supplement 02/05/24 02/05/24 02/04/24 08:00 History
mcg (2,000 unit) tablet (Vitamin
D3)
folic acid 1 mg tablet 1 mg PO DAILY Supplement 02/05/24 02/05/24 02/04/24 08:00 History
metoprolol succinate 50 mg 50 mg PO DAILY Blood Pressure 02/05/24 02/05/24 02/04/24 22:00 History
tablet,extended release 24 hr
ramipril 10 mg tablet 10 mg PO BID Blood Pressure 02/05/24 02/05/24 02/04/24 22:00 History
sertraline 100 mg tablet 100 mg PO DAILY Depression 02/05/24 02/05/24 02/04/24 22:00 History
vitamin B complex 1 cap PO DAILY Supplement 02/05/24 02/05/24 02/04/24 08:00 History
Review of Systems
-
Unable to Obtain full review of systems at this time due to: Patient Intubation
Vitals / Labs / Diagnostic Testing
Vital Signs
Temp Pulse Resp BP Pulse Ox
98.3 F 46 18 118/65 97
02/09/24 03:00 02/09/24 07:10 02/09/24 07:10 02/09/24 06:02 02/09/24 03:00
Laboratory Results
02/09/24
02:56
APTT 102.9 H
Diagnostic Testing:
Physical Exam
-
HEENT: Normocephalic and Other (ET tube in place)
Cardiovascular: S1/S2 and Regular Rhythm
Respiratory: Clear, Non-Labored Respirations and Other (Chest tube in place without air leak. No excessive drainage)
GI: Soft and Non Distended
Neurology: Awake
Skin: Warm
General: Comfortable
Assessment
-
69-year-old male with history of coronary artery disease, underwent cardiac catheterization that demonstrated multivessel coronary artery disease. He was deemed candidate for revascularization. Underwent coronary artery bypass 02/09/2024.
Status post coronary artery bypass
Severe multivessel coronary artery disease on cardiac catheterization-ejection fraction 46% 02/05/2024
Postoperative mechanical ventilation
Postoperative anemia
Lung nodule
Conditions present prior admission:
Coronary artery disease status post prior stents in 2011
Appendectomy
Tobacco abuse 1 pack/day for 40 years
Normal spirometry 02/05/2024
Hyperlipidemia
Hypertension
CT chest 02/06/2024: Reviewed, show mild emphysema postinflammatory pleural-parenchymal scarring of both apices, right greater than left. Isolated 6 mm slightly irregular nodular parenchymal focus. Calcified coronaries. Prominent diffuse confluent
dependent groundglass opacity bilaterally most likely atelectasis.
Assessment and plan:
He is doing well postop-currently on mechanical ventilation and appears comfortable.
ABG reviewed: Adequate oxygenation on ventilation.
Continue SIMV mode with no change
Spontaneous breathing trial per protocol once sedation wears off.
Anemia noted-no evidence of acute bleeding
Follow H&H serially
Hemodynamics -acceptable on low dose Levophed, will wean off as able.
PA catheter in place. Will follow hemodynamics.
Adequate renal function
Adequate urinary output
Chest tube with no excessive drainage-no air leak.
Chest x-ray reviewed: With no pneumothorax or fluid collections.
Remain nothing by mouth
Head of the bed elevation
CT chest: 01/2024 postinflammatory scarring/mild emphysema. Right upper lobe lung nodule 6 mm. Recommend outpatient pulmonary follow-up. Will need follow-up in 6 months with a repeat CAT scan. Will discuss with patient once extubated
Glycemic control per protocol
DVT prophylaxis when safe from the surgical perspective.
Critical care statement: A total of 31 minutes of critical care time was provided for this patient today. This includes management of unstable vital signs, evaluation of the patient at bedside, reviewing the patient's pertinent medical records
including ventilator settings, arterial blood gases, radiographs, microbiology, laboratory evaluations and discussion with primary team, critical care nursing, and respiratory therapy.
--- NOTE | 2024-02-09 15:05 | W.PN.UPDATE ---
Update Note
Progress Note Update
IV fluids:
Crystalloid:�
69 year old male admitted to [facility] 02/05/24 for elective cardiac catheterization after +outpatient stress test. Cath reported triple vessel coronary disease. Last dose ramipril 02/06. IV Heparin instituted post procedure and DC'd
consulting engineer to OR this AM.
IVF: 1300
U.O.:� 400
Blood:� none
Wires:� none
Inotropes:� none
Pressors:� Levophed @ 4
Sedatives:� Precedex
�
NEURO: sedated on Precedex, pupils +2mm B/L
RESP: #8OT @24cm> 530/60%/14/5. Lungs clear B/L. 2 mediastinal (10cc on arrival) and R/L pleural (10cc on arrival) chest tubes to -20cm suction. Sanguineous drainage
CV: RRR +S1, S2, no S3, no�rub, no murmur. Dermabond to median sternotomy. RIJ w/[place] locked @ XXcm. PA 25/12; CVP 5; C.O 4.52/CI 2.52
ABD: round, soft, no BS
EXT: no edema, +2/4 DP pulses B/L, no femoral bruit, RLE SHYAM wrap intact; left radial A-line intact; +2/4 ulnar
: Mane with clear yellow urine
�
A/P: POD #0 s/p CABG x 4 CUAUHTEMOC-LAD; radial-RPDA; SVG-D2; SVG-OM2
LIZETH: EF�55-60%, mild MR, mild TR
- wean and extubate
- DC insulin infusion as A1C 5.4 and no history of DM
# CAD with radial graft
- will require ASA/Plavix, statin, and beta mica as HR/BP permit
- Ca+ mica x 1 year for radial graft patency
# COPD/current tobacco abuse
- offer Nicotine patch
- need life long smoking cessation
- mini-nebs and Mucinex
�
# acute surgical blood loss anemia-expected
- trend CBC
�
�# Anxiety
- resume home Sertraline 100mg daily when tolerating solids
�
# Hypertension
- resume�home ACEI/Ca+ mica as BP permits
[2024-02-09 15:13] LABS: B.E. 1.4 mmol/L; HCO3 27.2 mmol/L (21-28); Ionized Calcium 1.25 mMOL/L (1.15-1.33); PCO2 47 mmHg (35-48); PO2 100 mmHg (83-108); Potassium 4.4 mMOL/L (3.5-5.1); Sodium 138 mMOL/L (136-145); pH 7.37 (7.35-7.45)
[2024-02-09] MEDS: ANCEF 10 IV ×2 (15:13→15:14)
[2024-02-09 15:14] LABS: Hematocrit 32.4 % (39.0-52.0); Hemoglobin 10.8 g/dL (13.0-18.0); Platelet Count 221 10^3/uL (130-400)
[2024-02-09] MEDS: ALBUMIN 5% 250 IV ×2 (15:14→21:25)
[2024-02-09] MEDS: NSS 500 IV (15:14)
[2024-02-09 15:23] LABS: INR 1.23; PT 15.3 Sec (11.4-14.6)
[2024-02-09 15:25] LABS: Blood Urea Nitrogen 15 mg/dl (9-20); Estimated Creatinine Clearance 100 ml/min; Glucose 155 mg/dl (70-99); Magnesium 2.5 mg/dl (1.6-2.3)
[2024-02-09 16:00] LABS: Glucose - Point of Care 139 mg/dl (70-99)
--- NOTE | 2024-02-09 16:09 | PTCARENOTE ---
Pt continues to breath over the ventilator. Used language line # [id number] and asked patient to open his eyes, squeeze hands, and wiggle toes. Pt did not follow any of the commands. Will attempt at a later time.
[2024-02-09] MEDS: LR 250 IV (16:13)
--- NOTE | 2024-02-09 17:00 | PTCARENOTE ---
Used language line to ask patient to follow commands, pt did not orriginally, however, when I started bathing the patient, he awoke and became agitated. Used language line to ask pt to follow commands and he did shake his head yes/no, squeeze
hands,and wiggle toes. RT at bedside to place pt on cpap trial. Pt tolerating. POX 92%.
[2024-02-09 17:07] LABS: Glucose - Point of Care 124 mg/dl (70-99)
[2024-02-09] MEDS: ZOFRAN 4 MG IV (17:08)
--- NOTE | 2024-02-09 17:08 | PTCARENOTE ---
POX 88%. RT at bedside. increased fio2 to 45%, POX 92-93%
[2024-02-09 17:35] LABS: B.E. 1.5 mmol/L; HCO3 26.6 mmol/L (21-28); Ionized Calcium 1.21 mMOL/L (1.15-1.33); O2 Saturation % 97.8 % (94-98); PCO2 43 mmHg (35-48); PO2 82 mmHg (83-108); Potassium 4.6 mMOL/L (3.5-5.1)
--- NOTE | 2024-02-09 17:45 | PTCARENOTE ---
Cpap ABG resulted. CT HOT TAR ROOFER notified and gave orders to extubate. RT at bedside to extubate patient. POX 85% on 6L. Pt placed on 11L midflow, POX 94%. Pt able to state his name and correctly. Pt drifts off to sleep easily.
--- NOTE | 2024-02-09 17:49 | RESPNOTE ---
Patient extubated to 6L, changed to midflow,11L.
[2024-02-09 17:58] LABS: Glucose - Point of Care 103 mg/dl (70-99)
[2024-02-09] MEDS: LOW STRENGTH ASPIRIN 81 MG PO (18:35)
[2024-02-09] MEDS: LIPITOR 40 MG PO (18:35)
[2024-02-09 18:48] LABS: Hematocrit 28.7 % (39.0-52.0); Hemoglobin 9.9 g/dL (13.0-18.0); Platelet Count 249 10^3/uL (130-400)
[2024-02-09 19:12] LABS: Glucose - Point of Care 116 mg/dl (70-99)
[2024-02-09] MEDS: CALCIUM CHLORIDE 10% SYRINGE 60 MG IV (21:01)
[2024-02-09 21:13] LABS: Glucose - Point of Care 98 mg/dl (70-99)
[2024-02-09] MEDS: SENOKOT-S 1 TABLET PO (21:14)
[2024-02-09] MEDS: ANCEF 5 IV (21:14)
[2024-02-09] MEDS: MUCINEX 600 MG PO (21:15)
--- NOTE | 2024-02-09 21:30 | PTCARENOTE ---
Assumed care of pt from daysnatividad RN. Walking rounds completed. Pt Gabonese speaking. Ipad language line utilized. Pt AAOx3. Following commands appropriately. SR w/ 1st degree AVB and PACs on the monitor. HR 60s. BP 108/69. MAP 81. CVP 3-7. PAP
20's/10's. CI: 2.27/CO: 4.38. No edema. Bilateral DP pulses palpable. Right radial pulse palpable. Left ulnar pulse palpable. Pt on 6 L Midflow NC. POX 93-96%. Lung sounds audible. Pt suctioning own mouth as needed. CTx4 (mediastinalx2 & R/L
pleural) to -20 suction, no airleak noted at this time and output WNL. CT dressing CDI. IS and deep breathing encouraged. Abdomen soft/nontender. Hypoactive BS. Pt tolerated small sips of water. Temperature sensing schwarz catheter CDI and draining
clear/yellow urine. Left radial graft site CDI w/ SHYAM wrap. Sternal Aquacel CDI. Right groin site soft and CDI. Right leg w/ SHYAM wrap CDI. Right IJ cordis CDI. Leon @49 cm CDI. Right radial a-line CDI. All lines leveled/zeroed/flushed. Levo infusing
per protocol. Glycemic protocol followed. Pt questions encouraged and answered. See worklist for full nursing assessment, VS, I&O, and interventions. Call tena within reach.
[2024-02-09] MEDS: LEVOPHED 250 IV (22:11)
[2024-02-09] MEDS: NEURONTIN 100 MG PO (22:12)
[2024-02-09] MEDS: TYLENOL 1000 MG PO (22:12)
[2024-02-09 23:05] LABS: Glucose - Point of Care 115 mg/dl (70-99)
[2024-02-10] VITALS (26 sets, daily range): BP systolic 91–127; BP diastolic 48–79; PULSE 75; O2SAT 91–92; BMI 21.9
--- NOTE | 2024-02-10 00:09 | PTCARENOTE ---
Pt reassessed. SR w/ 1st degree AVB on the monitor. HR 60s. BP 100-110s/60s. Levo infusing as ordered. CVP 3-8. PAP 20's/10's. CI: 2.61/ CO: 5.04. Right radial a-line and swan maintained. All lines leveled, zeroed, and flushed. Pt remained on 6 L
midflow NC. POX 95%. CT assessment unchanged from previous. All surgical sites stable. Glycemic protocol followed. Calcium chloride and 250 albumin administered as ordered - see OCT. Pt denies significant pain at this time. Pt repositioned in bed.
Call tena within reach.
[2024-02-10] MEDS: CALCIUM CHLORIDE 10% SYRINGE 60 MG IV (00:56)
[2024-02-10] MEDS: DILAUDID 0.25 MG IV (01:11)
[2024-02-10 02:11] LABS: Glucose - Point of Care 130 mg/dl (70-99)
[2024-02-10 03:17] LABS: Hematocrit 25.7 % (39.0-52.0); Hemoglobin 8.6 g/dL (13.0-18.0); Mean Corp Hgb Conc. 33.5 g/dL (33.0-37.0); Mean Corpuscular Hgb 31.4 pg (27.0-31.0); Mean Corpuscular Volume 93.8 fL (80.0-94.0); Platelet Count 154 10^3/uL (130-400); Red Blood Cell Count 2.74 10^6/uL (4.70-6.10); White Blood Cell Count 10.4 10^3/uL (4.8-10.8)
--- NOTE | 2024-02-10 03:39 | W.PN.CT ---
Today's Communication / Plan
-
Plan:
-No major issues overnight. Hemodynamically and neurologically intact
-Successfully extubated on 02/08 @ 1745
-Weaned off of Levophed gtt this AM @ 0200. Remains on insulin gtt per protocol
-Last CI 2.55, U/O since OR 1140
-Acute postop sinus bradycardia (40's), held Amiodarone and BB last night. May need to hold another day
-Cont. current meds (ASA, Plavix, Lipitor, Zoloft)
-Monitor chest tube output: 2meds 165/315, R/L pls 185/375
-D/C'd swan and a-line this AM @ 0500
-D/C'd schwarz catheter this AM @ 0600
-Telemetry phase today once off insulin gtt per protocol
-Maintain cordis
-Maintain temporary PW (will cut before d/c home)
-Wean off of O2 as tolerated
-Encourage use of IS
-Encourage smoking cessation
-OOB into chair/Ambulate
Assessment / Plan
-
Assessment:
-S/P CABG x 4 (CUAUHTEMOC to LAD, L RA to RPDA, GSV to OM2, GSV to D2)/ Endoscopic harvest/prep of RLE GSV/Endoscopic harvest/prep of L RA, by Dr. Tellez, 02/09/24, pod#1
-Multivessel CAD including 50-60% distal LM
-Abnormal stress test
-Hx inferior CT S/P MILES x2 to RCA, 05/14/2012 @ [facility], [facility]
-Mild MR
-Mild TR
-Sinus bradycardia with 1st deg AVB
-LVEF 51% per echo 02/05/24; 50-55% and improved to 55-60% per intraop LIZETH
-HTN
-HLD
-Active tobacco abuse (40 pk/yr)
-COPD
-Left GSV is surgically absent, thrombosed left small saphenous vein, per vein mapping obtained 02/05/24
-S/P Appendectomy
-Acute postop blood loss/Anemia (stable without blood transfusion)
-Acute postop atelectasis
-Acute postop hypovolemia with subsequent hypervolemia
Discussed patient care with: Cardiology, Nursing, Respiratory Therapy, Pharmacy and Care Team
Subjective
Procedure
CABG x 4 (CUAUHTEMOC to LAD, L RA to RPDA, GSV to OM2, GSV to D2)/ Endoscopic harvest/prep of RLE GSV/Endoscopic harvest/prep of L RA, by Dr. Tellez, 02/09/24
-
Date of Service: February 10, 2024
Pt c/o incisional pain, otherwise feels well
Objective Data
-
Lab Results
02/10/24 03:09
PT 15.3 Sec (11.4-14.6) H 02/09/24 14:45
INR 1.23 02/09/24 14:45
APTT 102.9 Sec (23.4-35.0) H 02/09/24 02:56
Vital Signs
Vital Signs
Temp Pulse Resp BP Pulse Ox
98.3 F 67 18 91/57 93
02/10/24 03:00 02/10/24 03:20 02/10/24 03:20 02/10/24 03:12 02/10/24 03:20
CT Intake/Output/Weight
02/09/24 02/09/24 02/10/24
06:59 18:59 06:59
Intake Total 132 / 332 1027.6 / 1667.0 639.4 / 1667.0
Output Total 710 / 1705 995 / 1705
Balance 132 / 332 317.6 / -38.0 -355.6 / -38.0
SaO2: 93 (6L)
Physical Exam
-
General: Awake, Oriented and AOx3
Cardiovascular: Regular rate & rhythm, No Murmurs and Rub
Respiratory: Decreased Breath Sounds
Sternum: Stable
Incision: Clean, Dry, Intact and Dressing Intact
Extremities: No Edema and Other
Data Reviewed
-
Lab Results: Results Reviewed
Medications: Active Meds Reviewed
Chest X-Ray: Report Reviewed and Image Reviewed
ECG: Report Reviewed and Image Reviewed
[2024-02-10 03:42] LABS: Blood Urea Nitrogen 14 mg/dl (9-20); Calcium 10.3 mg/dl (8.4-10.2); Carbon Dioxide 26 mmol/L (22-30); Chloride 107 mmol/L (98-107); Estimated Creatinine Clearance 100 ml/min; Glucose 95 mg/dl (70-99); Magnesium 1.9 mg/dl (1.6-2.3); Potassium 4.3 mmol/L (3.5-5.1); Sodium 140 mmol/L (135-145); eGFR > 60.00
[2024-02-10 04:10] LABS: Glucose - Point of Care 84 mg/dl (70-99)
--- NOTE | 2024-02-10 05:14 | PTCARENOTE ---
Pt reassessed. Labs drawn and sent. EKG obtained. SR on the monitor w/ 1st degree AVB. CI > 2. BP 100/50-60. Pt on 6 L NC. POX 92-96%. CT assessment unchanged. All surgical sites stable. [place] and right arterial line dc'd per order. No c/o pain at
this time. Pt independently suctioning secretions out of mouth. See worklist for full VS and I&O's. Call tena within reach.
[2024-02-10] MEDS: ANCEF 5 IV ×2 (05:20→12:13)
[2024-02-10] MEDS: TYLENOL 1000 MG PO ×3 (05:20→22:19)
[2024-02-10 06:15] LABS: Glucose - Point of Care 113 mg/dl (70-99)
--- NOTE | 2024-02-10 08:00 | PTCARENOTE ---
pt received from previous RN, oriented, Prydein[place] speaking, language line utilized. OOB in chair. SR on the monitor, HR 70s-80s. SBP 90-100s. palpable pulses, trace L hand edema. pt on 6LNC, 89-96% POX. lungs diminished in bases. IS encouraged. chest
PT performed. +productive cough. CTx4, no air leak or crepitus. pt abdomen s/n, denies n/v. tolerating clears. sternal Aquacel intact, chest tube dressing c/d/i. L Radial SHYAM bandage in place. R groin LUIS FELIPE. RLE SHYAM bandage in place. RIJ Cordis
maintained. PIV. insulin gtt running as ordered. see worklist for VS, I&O, and assessment.
[2024-02-10 08:25] LABS: Glucose - Point of Care 98 mg/dl (70-99)
--- NOTE | 2024-02-10 08:34 | W.PN.ANS.POP ---
Anesthesia Post Operative
- Anesthesia Post Op Note
Vital Signs Stable-See Nursing Note: Yes
Airway Patent: Yes
Adequate Pain Control: Yes
Change in Mental Status: No
Current Postoperative Nausea & Vomiting: No
Anesthesia Complications: No
General Anesthetic Recall: No
Unplanned Admission: No
Post Op Hydration Adequate: Yes
[2024-02-10] MEDS: LIDOCAINE 4% PATCH 1 PATCH TOPICAL (08:35)
[2024-02-10] MEDS: ROXICODONE 2.5 MG PO (08:36)
[2024-02-10] MEDS: MAGNESIUM OXIDE 500 MG PO ×2 (08:37→20:46)
[2024-02-10] MEDS: PROTONIX 40 MG PO (08:38)
[2024-02-10] MEDS: MUCINEX 600 MG PO ×2 (08:38→20:46)
[2024-02-10] MEDS: PLAVIX 75 MG PO (08:38)
[2024-02-10] MEDS: SENOKOT-S 1 TABLET PO ×2 (08:38→20:46)
[2024-02-10] MEDS: NEURONTIN 100 MG PO ×3 (08:38→22:21)
[2024-02-10] MEDS: LOW STRENGTH ASPIRIN 81 MG PO (08:38)
[2024-02-10] MEDS: ZOLOFT 100 MG PO (08:38)
[2024-02-10] MEDS: BACTROBAN 2% OINTMENT 1 APPLIC NASAL ×2 (08:45→20:46)
[2024-02-10 10:03] LABS: Glucose - Point of Care 107 mg/dl (70-99)
--- NOTE | 2024-02-10 10:34 | W.PN.CD ---
Today's Communication / Plan
-
Incentive spirometry.
Ambulate.
Diuresis likely tomorrow.
Monitor H/H.
Impression / Plan
-
Impression/Plan: 68-year-old male with a PMH significant for CAD s/p CO and multiple MILES, CO 05/14/2012 requiring MILES x 2 RCA, HTN, HLD, and Tobacco abuse (current everyday smoker 1PPD x 40 yrs) admitted to [facility] after elective
outpatient cardiac catheterization revealed severe multivessel disease for inpatient CABG.
#CAD
-s/p prior PCI.
-Cath shows multivessel CAD.
-S/P CABG x4 (LIMT to LAD, LRA to RPDA, SVG to OM2, SVG to D2).
-Anticipate routine post operative management.
-Continue aspirin, atorvastatin when taking PO.
-Pain/Chest Tube management per CT surgery.
-Monitor H/H.
-Not quite ready for diuresis, likely tomorrow.
-Incentive spirometry. Ambulate.
#HTN
-Chronic, stable.
-BP medications on hold in the perioperative setting.
#HLD
-Chronic, stable.
-Continue atorvastatin.
#Transaminitis
- Stable.
-Monitor.
Subjective/Interval History:
Nicardipine held for hypotension yesterday.
Extubated yesterday at 17:45.
Amiodarone/beta mica held for bradycardia.
Weight is up 1.7 kg from [place] (73.3 <-- 71.6).
CI consistently > 2.0 L/min/m2. [place] catheter and A-line discontinued.
Oxygen weaned to 3LNC.
Clopidogrel restarted.
Hbg has fallen from 13.6 --> 10.8 --> 9.9 --> 8.6.
Norepinephrine off.
DATA:
Cardiac Catheterization, 02/05/2024:
CORONARY ANGIOGRAPHY
Dominance: Right
Left Main: 50-60% distal stenosis
LAD: The LAD is calcified with 50% proximal and 70% mid stenoses. The distal LAD is free of disease. D1 is moderate in size with trivial luminal disease. D2 is slightly larger than D1 with 30% ostial stenosis
Circumflex: There is a medium sized ramus intermedius with mild disease. There is 40% ostial circumflex stenosis. There is 50% mid circumflex stenosis distal to the origin of a small OM1 and proximal to the takeoff of a medium sized OM 2. The
circumflex terminates with a very small OM 3.
RCA: The RCA is a large dominant severely calcified vessel. There are 2 stents placed at a hospital in [place] in 2011 and the mid RCA. It is not possible to know with certainty whether there is a gap between the stents due to the severity of
the calcification. There is 99% stenosis in the mid RCA possibly at the gap segment with MARQUISE grade II flow into a large PDA.
The RCA terminates with two moderate size posterolateral branches.
CONCLUSIONS
1: Left ventricular enlargement with moderate inferoapical hypokinesis with EF 46%
2: Severe multivessel CAD as described
3. Recommend inpatient CABG with grafting of LAD, either D1 or D2, OM 2, and RPDA
TTE, 02/05/2024:
CONCLUSIONS
Normal left ventricular chamber size. Low normal left ventricular systolic
function. Left ventricular ejection fraction is 51% by Galdamez's method. No
gross segmental wall motion abnormalities. Mild concentric left ventricular
hypertrophy. Diastolic function indeterminate.
Top normal right ventricular size. Normal right ventricular function.
Indexed LA volume is mildly abnormal.
Mild to moderate mitral regurgitation.
Mild aortic regurgitation.
Estimated pulmonary artery pressure of 24 mmHg, assuming a right atrial
pressure of 3 mmHg.
Dilated aortic root, 4.6 cm.
No prior study for comparison.
Physical Exam
Vital Signs/Labs
Vital Signs
Temp Pulse Resp BP Pulse Ox
36.6 C 77 16 102/70 94
02/10/24 08:00 02/10/24 10:00 02/10/24 07:00 02/10/24 10:00 02/10/24 10:00
02/08/24 02/09/24 02/10/24
11:59 11:59 11:59
Actual Weight 71.6 kg 72 kg 73.3 kg
02/10/24 03:09
02/10/24 03:09
PT 15.3 Sec (11.4-14.6) H 02/09/24 14:45
INR 1.23 02/09/24 14:45
APTT 102.9 Sec (23.4-35.0) H 02/09/24 02:56
Magnesium 1.9 mg/dl (1.6-2.3) 02/10/24 03:09
Triglycerides 104 mg/dl (10-149) 02/06/24 04:47
LDL Cholesterol, Calc 38 mg/dl 02/06/24 04:47
VLDL Cholesterol, Calc 20 mg/dl (0-30) 02/06/24 04:47
HDL Cholesterol 81 mg/dl 02/06/24 04:47
Physical Exam
Constitutional: No acute distress and Comfortable
EENT: Anicteric and Moist mucous membranes
Cardiovascular: Rhythm & rate is regular, Pedal edema is absent, JVD pressure is normal, S1S2 is normal and Murmur/rub/gallop absent
Respiratory: Respiratory effort normal and Other (Decreased throughout.)
GI: Soft, Distention absent, Flat, Non tender and Normal bowel sounds
Neuro/Psych: AO x 3
Data Reviewed
-
Date of Service: February 10, 2024
Medical Decision Making: Reviewed Test Results, Independent Historian Assessment, Test Interpretation and Review of Case with other Provider
EKG: Tracing Personally Visualized and interpreted and Report Reviewed by me
Echo: Report Reviewed by me
X-Ray/CT/US/MRI/NUC/PET: Image Personally Visualized and interpreted and Report Reviewed by me
Medical Tests (PFT, Pathology etc): Image Personally Visualized and interpreted and Report Reviewed by me
Labs: Labs Reviewed by me
[2024-02-10] MEDS: NSS IV (11:57)
[2024-02-10 12:12] LABS: Glucose - Point of Care 99 mg/dl (70-99)
[2024-02-10] MEDS: LOPRESSOR PO ×2 (12:13→20:52)
--- NOTE | 2024-02-10 12:45 | PTCARENOTE ---
pt VSS, no changes in assessment. OOB in chair. IS encouraged. pt bladder scanned for 186ml, no pain or urge to void. SYSTEMS INTEGRATION ENGINEER aware.
--- NOTE | 2024-02-10 13:20 | W.PN.INTV ---
Today's Communication / Plan
Recommendations
Continue postoperative care
Encourage incentive spirometry
Smoking cessation
Follow chest tube output
As needed nebulizers
Sign off
Assessment
-
69-year-old male with history of coronary artery disease, underwent cardiac catheterization that demonstrated multivessel coronary artery disease. He was deemed candidate for revascularization. Underwent coronary artery bypass 02/09/2024.
Status post coronary artery bypass
Severe multivessel coronary artery disease on cardiac catheterization-ejection fraction 46% 02/05/2024
Postoperative mechanical ventilation
Postoperative anemia
Lung nodule
Conditions present prior admission:
Coronary artery disease status post prior stents in 2011
Appendectomy
Tobacco abuse 1 pack/day for 40 years
Normal spirometry 02/05/2024
Hyperlipidemia
Hypertension
CT chest 02/06/2024: Reviewed, show mild emphysema postinflammatory pleural-parenchymal scarring of both apices, right greater than left. Isolated 6 mm slightly irregular nodular parenchymal focus. Calcified coronaries. Prominent diffuse confluent
dependent groundglass opacity bilaterally most likely atelectasis.
Assessment and plan:
Extubated 02/09/2024
On low rate supplemental oxygen as needed continue analgesia
Monitor respiratory status closely
Anemia noted-no evidence of acute bleeding
Hemoglobin 8.6
Follow H&H serially
Hemodynamics -stable. Off vasopressors.
Follow urinary output and renal function, Creatinine is normal.
Eventual diuresis in the next day or so
Chest tube with no excessive drainage-no air leak.
Chest x-ray reviewed: With no pneumothorax or fluid collections. Improving bibasilar atelectasis
Advance diet as tolerated
Head of the bed elevation
Smoking cessation encouraged.
CT chest: 01/2024 postinflammatory scarring/mild emphysema. Right upper lobe lung nodule 6 mm. Recommend outpatient pulmonary follow-up. Will need follow-up in 6 months with a repeat CAT scan. Information will be
Left in the chart for follow-up
as needed nebulizer
Glycemic control per protocol
DVT prophylaxis when safe from the surgical perspective.
No additional recommendation from the critical care perspective.
Sign off.
Subjective Dataa
Subjective Data
Date of Service:
Date of Service: February 10, 2024
Chief Complaint: Welfare Specialist Follow Up (Status post coronary artery bypass)
Subjective:
Overnight no major issues.
Extubated on low rate supplemental oxygen
Language barrier
Review of Systems
General: Fever (n)
Cardiopulmonary: Dyspnea (n)
GI: Abdominal Pain (n) and Nausea (n)
Objective Data
Data Reviewed
Vital Signs / I&O / Oxygen:
Vital Signs
Temp Pulse Resp BP Pulse Ox
98.1 F 75 18 117/55 93
02/10/24 12:00 02/10/24 13:00 02/10/24 13:00 02/10/24 13:00 02/10/24 12:00
Intake and Output
02/09/24 02/10/24 02/11/24
06:59 06:59 06:59
Intake Total 332 / 332 1710.0 / 1722.3 81.0 / 81.0
Output Total 1875 / 1905 100 / 100
Balance 332 / 332 -165.0 / -182.7 -19.0 / -19.0
SaO2 [CPAP/PSV] 92
SaO2 [SIMV] 98
SaO2 93
Nasal Cannula flow liters per 3
minute
Physical Exam
General: Comfortable
HEENT: Normocephalic
Cardiovascular: S1-S2
Respiratory: Clear and Non-Labored Respirations
GI: Soft and Non Distended
Neurology: Awake, Alert and AO x 3
Skin: Warm
Labs/Micro/Reports
Lab Data
02/10/24 03:09
02/10/24 03:09
Laboratory Results
02/09/24 02/09/24
14:45 17:29
PT 15.3 H
INR 1.23
pH 7.37 7.40
pCO2 47 43
pO2 100 82 L
HCO3 27.2 26.6
O2 Delivery Level
[2024-02-10 14:27] LABS: Glucose - Point of Care 121 mg/dl (70-99)
[2024-02-10 15:36] LABS: Glucose - Point of Care 174 mg/dl (70-99)
--- NOTE | 2024-02-10 16:00 | PTCARENOTE ---
pt VSS, pt called RN into room 'vision is a little blurry' PERSONNEL PSYCHOLOGIST at bedside. TERESA, able to tell time on the clock. no orders received. pt aware to call if vision gets worse or changes. SHYAM bandages removed. insulin gtt dc'd per orders. pt placed back to
bed w/ 2 person assist. chest tube dressing changed.
[2024-02-10] MEDS: ROXICODONE 5 MG PO (18:02)
[2024-02-10] MEDS: LIPITOR 40 MG PO (18:03)
--- NOTE | 2024-02-10 21:00 | PTCARENOTE ---
Assumed care of pt from shasha RN. Pt Namibian speaking. Pt daughter at the bedside to help translate. Pt AAOx3. Following commands appropriately. SR on the monitor. HR 80s. BP 111/63. Lopressor held per CTPA. Trace left hand edema. Palpable pulses
throughout. Pt on 4 L NC. POX 93%. Lung sounds diminished. Pt suctioning own secretions from mouth as needed. IS and deep breathing encouraged. CTx4 (mediastinal x2 and R/L pleural) to -20 suction, no airleak at this time, and output WNL. Pt
voiding yellow urine in the urinal. Left arm radial graft approximated and TRADE SHOW COORDINATOR. Sternal Aquacel CDI. Right leg/groin sites approximated and LUIS FELIPE. Right IJ cordis and PIV CDI. Pt states pain is well controlled at this time. See worklist for full
nursing assessment, VS, and interventions. Call tena within reach.
[2024-02-10] MEDS: PACERONE 200 MG PO (22:21)
[2024-02-11] VITALS (16 sets, daily range): BP systolic 91–123; BP diastolic 48–67; PULSE 78; O2SAT 93; BMI 22.4
--- NOTE | 2024-02-11 | PTCARENOTE ---
Received pt at this time,alert and oriented,communicated with nurse without difficulty,SR hall monitor,No resp distress O2 sat 95% on 4lnc.Physical assessment preformed, no visual complaints,VS stable,Pt denies need for pain med,supporting
sternal incision.Chest tubes intact x4 suction maintained.Pt assisted with repositioning,close observation ongoing throughout the night.
[2024-02-11] MEDS: ULTRAM 50 MG PO (02:10)
--- NOTE | 2024-02-11 03:47 | W.PN.CT ---
Today's Communication / Plan
-
Plan:
-No major issues overnight. Hemodynamically and neurologically intact
-BP has been soft postop. BB currently on hold. Will start Norvasc 2.5 mg today
-Cont. current meds (ASA, Plavix, Lipitor, Zoloft)
-Consider d/c of chest tubes: 2meds 125/125, R/L pls 195/195
-H/H 7.5/22.5; Na 133, likely d/t hypervolemia, consider Lasix if BP permits. Fluid restriction
-Maintain cordis another day
-Maintain temporary PW (will cut before d/c home)
-Wean off of O2 as tolerated
-Encourage use of IS
-Encourage smoking cessation
-OOB into chair/Ambulate
Assessment / Plan
-
Assessment:
-S/P CABG x 4 (CUAUHTEMOC to LAD, L RA to RPDA, GSV to OM2, GSV to D2)/ Endoscopic harvest/prep of RLE GSV/Endoscopic harvest/prep of L RA, by Dr. Tellez, 02/09/24, pod#2
-Multivessel CAD including 50-60% distal LM
-Abnormal stress test
-Hx inferior [place] S/P MILES x2 to RCA, 05/14/2012 @ [place], [place]
-Mild MR
-Mild TR
-Sinus bradycardia with 1st deg AVB
-LVEF 51% per echo 02/05/24; 50-55% and improved to 55-60% per intraop LIZETH
-HTN
-HLD
-Active tobacco abuse (40 pk/yr)
-COPD
-Left GSV is surgically absent, thrombosed left small saphenous vein, per vein mapping obtained 02/05/24
-S/P Appendectomy
-Acute postop blood loss/Anemia (stable without blood transfusion)
-Acute postop atelectasis
-Acute postop hypovolemia with subsequent hypervolemia
Discussed patient care with: Cardiology, Nursing, Respiratory Therapy, Pharmacy and Care Team
Subjective
Procedure
CABG x 4 (CUAUHTEMOC to LAD, L RA to RPDA, GSV to OM2, GSV to D2)/ Endoscopic harvest/prep of RLE GSV/Endoscopic harvest/prep of L RA, by Dr. Tellez, 02/09/24
-
Date of Service: February 11, 2024
Pt c/o incisional pain, otherwise feels well
Objective Data
-
PT 15.3 Sec (11.4-14.6) H 02/09/24 14:45
INR 1.23 02/09/24 14:45
APTT 102.9 Sec (23.4-35.0) H 02/09/24 02:56
Vital Signs
Vital Signs
Temp Pulse Resp BP Pulse Ox
99.1 F 79 20 91/48 95
02/11/24 00:12 02/11/24 00:00 02/10/24 20:41 02/10/24 23:16 02/11/24 00:37
CT Intake/Output/Weight
02/10/24 02/10/24 02/11/24
06:59 18:59 06:59
Intake Total 682.4 / 1722.3 126.4 / 136.4 10 / 136.4
Output Total 1165 / 1905 500 / 755 255 / 755
Balance -482.6 / -182.7 -373.6 / -618.6 -245 / -618.6
SaO2: 95 (4L)
Physical Exam
-
General: Awake, Oriented and AOx3
Cardiovascular: Regular rate & rhythm, No Murmurs, No Rub and No Gallop
Respiratory: Decreased Breath Sounds
Sternum: Stable
Incision: Clean, Dry, Intact and Dressing Intact
Extremities: No Edema
Data Reviewed
-
Lab Results: Results Reviewed
Medications: Active Meds Reviewed
Chest X-Ray: Report Reviewed and Image Reviewed
ECG: Report Reviewed and Image Reviewed
[2024-02-11 05:04] LABS: Hematocrit 22.5 % (39.0-52.0); Hemoglobin 7.5 g/dL (13.0-18.0); Mean Corp Hgb Conc. 33.3 g/dL (33.0-37.0); Mean Corpuscular Hgb 31.4 pg (27.0-31.0); Mean Corpuscular Volume 94.1 fL (80.0-94.0); Mean Platelet Volume 10.5 fL (7.4-10.4); Platelet Count 150 10^3/uL (130-400); Red Blood Cell Count 2.39 10^6/uL (4.70-6.10); Red Cell Dist. Width 12.7 % (11.5-14.5); White Blood Cell Count 8.5 10^3/uL (4.8-10.8)
[2024-02-11 06:03] LABS: Blood Urea Nitrogen 13 mg/dl (9-20); Calcium 8.9 mg/dl (8.4-10.2); Carbon Dioxide 27 mmol/L (22-30); Chloride 101 mmol/L (98-107); Estimated Creatinine Clearance 119 ml/min; Glucose 117 mg/dl (70-99); Magnesium 1.8 mg/dl (1.6-2.3); Potassium 4.4 mmol/L (3.5-5.1); Sodium 133 mmol/L (135-145); eGFR > 60.00
[2024-02-11] MEDS: TYLENOL 1000 MG PO ×3 (06:12→21:00)
[2024-02-11] MEDS: LIDOCAINE 4% PATCH 1 PATCH TOPICAL (08:11)
[2024-02-11] MEDS: PACERONE 200 MG PO ×3 (08:13→21:00)
[2024-02-11] MEDS: ZOLOFT 100 MG PO (08:13)
[2024-02-11] MEDS: LOW STRENGTH ASPIRIN 81 MG PO (08:13)
[2024-02-11] MEDS: PROTONIX 40 MG PO (08:13)
[2024-02-11] MEDS: NEURONTIN 100 MG PO ×3 (08:13→21:00)
[2024-02-11] MEDS: MAGNESIUM SULFATE 100 IV (08:13)
[2024-02-11] MEDS: MUCINEX 600 MG PO ×2 (08:13→19:35)
[2024-02-11] MEDS: PLAVIX 75 MG PO (08:13)
[2024-02-11] MEDS: MAGNESIUM OXIDE 500 MG PO ×2 (08:13→19:35)
[2024-02-11] MEDS: SENOKOT-S 1 TABLET PO ×2 (08:13→19:36)
[2024-02-11] MEDS: BACTROBAN 2% OINTMENT 1 APPLIC NASAL ×2 (08:14→19:35)
--- NOTE | 2024-02-11 08:15 | PTCARENOTE ---
pt received from previous RN, oriented, Guatemalan speaking, language line utilized. pt states vision is the same as yesterday, ADMITTED ATTORNEYS aware. OOB in chair. SR on the monitor, HR 60-70s. SBP 90-110s. palpable pulses, trace L hand/LE edema. pt on 4LNC,
92-96% POX. lungs diminished in bases. IS encouraged. chest PT performed. +productive cough. CTx4, no air leak or crepitus. pt abdomen s/n, denies n/v. tolerating diet. sternal Aquacel intact, chest tube dressing c/d/i. L Radial site approximated,
ecchymotic. R groin LUIS FELIPE. RLE incision approximated, FILM SPOOLER. RIJ Cordis maintained. PIV. type and screen drawn as ordered. see worklist for VS, I&O, and assessment.
--- NOTE | 2024-02-11 10:05 | W.PN.CD ---
Today's Communication / Plan
-
Furosemide 80 mg IV x1.
Ambulate.
Incentive spirometry.
Chest tubes per CT surgery.
Impression / Plan
-
Impression/Plan: 68-year-old male with a PMH significant for CAD s/p [place] and multiple MILES, [place] 05/14/2012 requiring MILES x 2 RCA, HTN, HLD, and Tobacco abuse (current everyday smoker 1PPD x 40 yrs) admitted to [facility] after elective
outpatient cardiac catheterization revealed severe multivessel disease for inpatient CABG.
#CAD
-s/p prior PCI.
-Cath shows multivessel CAD.
-S/P CABG x4 (LIMT to LAD, LRA to RPDA, SVG to OM2, SVG to D2) with Dr. Tellez on 02/09/2024.
-Anticipate routine post operative management.
-Continue aspirin, atorvastatin when taking PO.
-Pain/Chest Tube management per CT surgery.
-Incentive spirometry. Ambulate.
-Data suggests volume overload (weight up, hyponatremia, falling H/H). Furosemide 80 mg IV x1 and monitor response.
-Low threshold for transfusion, but I would wait to see response to diuresis and hemoconcentration as he is otherwise asymptomatic.
#HTN
-Chronic, stable.
-BP medications on hold in the perioperative setting.
#HLD
-Chronic, stable.
-Continue atorvastatin.
#Transaminitis
-Stable.
-Monitor.
Subjective/Interval History:
Weight up an additional 1.7 kg.
SaO2 = 91% on 3LNC.
Hbg down to 7.5 (from 8.6).
Na down to 133 (from 140).
DATA:
Cardiac Catheterization, 02/05/2024:
CORONARY ANGIOGRAPHY
Dominance: Right
Left Main: 50-60% distal stenosis
LAD: The LAD is calcified with 50% proximal and 70% mid stenoses. The distal LAD is free of disease. D1 is moderate in size with trivial luminal disease. D2 is slightly larger than D1 with 30% ostial stenosis
Circumflex: There is a medium sized ramus intermedius with mild disease. There is 40% ostial circumflex stenosis. There is 50% mid circumflex stenosis distal to the origin of a small OM1 and proximal to the takeoff of a medium sized OM 2. The
circumflex terminates with a very small OM 3.
RCA: The RCA is a large dominant severely calcified vessel. There are 2 stents placed at a hospital in [place] in 2011 and the mid RCA. It is not possible to know with certainty whether there is a gap between the stents due to the severity of
the calcification. There is 99% stenosis in the mid RCA possibly at the gap segment with MRAQUISE grade II flow into a large PDA.
The RCA terminates with two moderate size posterolateral branches.
CONCLUSIONS
1: Left ventricular enlargement with moderate inferoapical hypokinesis with EF 46%
2: Severe multivessel CAD as described
3. Recommend inpatient CABG with grafting of LAD, either D1 or D2, OM 2, and RPDA
TTE, 02/05/2024:
CONCLUSIONS
Normal left ventricular chamber size. Low normal left ventricular systolic
function. Left ventricular ejection fraction is 51% by Galdamez's method. No
gross segmental wall motion abnormalities. Mild concentric left ventricular
hypertrophy. Diastolic function indeterminate.
Top normal right ventricular size. Normal right ventricular function.
Indexed LA volume is mildly abnormal.
Mild to moderate mitral regurgitation.
Mild aortic regurgitation.
Estimated pulmonary artery pressure of 24 mmHg, assuming a right atrial
pressure of 3 mmHg.
Dilated aortic root, 4.6 cm.
No prior study for comparison.
Physical Exam
Vital Signs/Labs
Vital Signs
Temp Pulse Resp BP Pulse Ox
37.3 C 76 18 119/65 92
02/11/24 04:29 02/11/24 09:00 02/11/24 08:00 02/11/24 08:04 02/11/24 09:04
02/09/24 02/10/24 02/11/24
11:59 11:59 11:59
Actual Weight 72 kg 73.3 kg 75 kg
02/11/24 04:56
02/11/24 04:56
PT 15.3 Sec (11.4-14.6) H 02/09/24 14:45
INR 1.23 02/09/24 14:45
APTT 102.9 Sec (23.4-35.0) H 02/09/24 02:56
Magnesium 1.8 mg/dl (1.6-2.3) 02/11/24 04:56
Triglycerides 104 mg/dl (10-149) 02/06/24 04:47
LDL Cholesterol, Calc 38 mg/dl 02/06/24 04:47
VLDL Cholesterol, Calc 20 mg/dl (0-30) 02/06/24 04:47
HDL Cholesterol 81 mg/dl 02/06/24 04:47
Physical Exam
Constitutional: No acute distress and Comfortable
EENT: Anicteric and Moist mucous membranes
Cardiovascular: Rhythm & rate is regular, Pedal edema is absent, JVD pressure is normal, S1S2 is normal and Murmur/rub/gallop absent
Respiratory: Respiratory effort normal, Lungs clear to auscul., Wheeze Absent, Crackles Absent and Rhonchi Absent
GI: Soft, Distention absent, Flat, Non tender and Normal bowel sounds
Neuro/Psych: AO x 3
Data Reviewed
-
Date of Service: February 11, 2024
Medical Decision Making: Reviewed Test Results, Independent Historian Assessment and Test Interpretation
EKG: Tracing Personally Visualized and interpreted and Report Reviewed by me
Echo: Report Reviewed by me
X-Ray/CT/US/MRI/NUC/PET: Image Personally Visualized and interpreted and Report Reviewed by me
Medical Tests (PFT, Pathology etc): Report Reviewed by me
Labs: Labs Reviewed by me
Old Records: Reviewed
--- NOTE | 2024-02-11 11:09 | PTCARENOTE ---
pt VSS, 1 unit PRBCs transfused. CTx4 dc'd as ordered, dressing c/d/i. pt ambulated in hallway w/ CR.
[2024-02-11] MEDS: LASIX 40 MG IV (12:03)
[2024-02-11] MEDS: NSS 500 IV (12:03)
[2024-02-11] MEDS: LOPRESSOR 12.5 MG PO ×2 (14:07→19:35)
--- NOTE | 2024-02-11 15:42 | PTCARENOTE ---
pt VSS, no changes in assessment. voiding in urinal. OOB in chair reading newspaper. IS encouraged, 1500-2000ml.
[2024-02-11] MEDS: LIPITOR 40 MG PO (17:47)
[2024-02-11] MEDS: NORVASC 2.5 MG PO (19:35)
--- NOTE | 2024-02-11 19:58 | PTCARENOTE ---
Received pt from dayshift; pt is resting comfortably in bed; Language line used to assess pt; pt is AAOx4, denies pain; NSR on monitor, VSS; heart sounds audible, right radial, left ulnar, and b/l DP pulses palpable, no edema noted; lungs diminished
at b/l bases, spo2 95% on 3 LNC; + BS x4 quadrants, abdomen soft non tender; pt voiding clear yellow urine; surgical sites maintained; right IJ cordis and PIV maintained; Norvasc and BB both ordered for 1999, VS taken and order confirmed with CVPA;
call tena within reach; will continue to monitor.
[2024-02-12] VITALS (13 sets, daily range): BP systolic 94–122; BP diastolic 53–72; PULSE 73; O2SAT 95–98; BMI 21.8
--- NOTE | 2024-02-12 | PTCARENOTE ---
Pt assessment unchanged; VSS, NSR on monitor; pt assisted OOB to bathroom and back to bed; call tena within reach; will continue to monitor.
[2024-02-12 03:42] LABS: Hemoglobin 8.1 g/dL (13.0-18.0); Mean Corp Hgb Conc. 35.2 g/dL (33.0-37.0); Mean Corpuscular Hgb 31.4 pg (27.0-31.0); Mean Corpuscular Volume 89.1 fL (80.0-94.0); Mean Platelet Volume 10.1 fL (7.4-10.4); Platelet Count 153 10^3/uL (130-400); Red Blood Cell Count 2.58 10^6/uL (4.70-6.10); Red Cell Dist. Width 13.2 % (11.5-14.5); White Blood Cell Count 7.2 10^3/uL (4.8-10.8)
--- NOTE | 2024-02-12 04:00 | PTCARENOTE ---
Pt assessment unchanged; pt resting comfortably in bed; NSR on monitor; VSS; call tena within reach; will continue to monitor.
[2024-02-12 04:31] LABS: Blood Urea Nitrogen 13 mg/dl (9-20); Calcium 8.6 mg/dl (8.4-10.2); Carbon Dioxide 28 mmol/L (22-30); Chloride 101 mmol/L (98-107); Estimated Creatinine Clearance 122 ml/min; Glucose 117 mg/dl (70-99); Potassium 3.9 mmol/L (3.5-5.1); Sodium 134 mmol/L (135-145); eGFR > 60.00
[2024-02-12] MEDS: TYLENOL 1000 MG PO ×2 (05:09→22:17)
[2024-02-12] MEDS: KCL 20 MEQ PO (05:09)
--- NOTE | 2024-02-12 06:01 | W.PN.CT ---
Today's Communication / Plan
-
-pod #3
-c/o trouble coughing up mucus - continue Mucinex and chest PT. Encourage IS (1999 so far), gave acapella
-got 1 pRBC and 40 Lasix on 02/10 - Hg 8.1 today (7.5 on 02/10)
-UO 800/2725 in 12/24 hrs. wt is down 5 lbs from yesterday, still 2 lbs up from preop
-current meds (ASA, Plavix, Norvasc for radial graft, Lopressor, Amio, Lipitor, Protonix, Mucinex)
Assessment / Plan
-
Assessment:
-S/P CABG x 4 (CUAUHTEMOC to LAD, L RA to RPDA, GSV to OM2, GSV to D2)/ Endoscopic harvest/prep of RLE GSV/Endoscopic harvest/prep of L RA, by Dr. Tellez, 02/09/24, pod#3
-Multivessel CAD including 50-60% distal LM
-Abnormal stress test
-Hx inferior [place] S/P MILES x2 to RCA, 05/14/2012 @ [place], [place]
-Mild MR
-Mild TR
-Sinus bradycardia with 1st deg AVB
-LVEF 51% per echo 02/05/24; 50-55% and improved to 55-60% per intraop LIZETH
-HTN
-HLD
-Active tobacco abuse (40 pk/yr)
-COPD
-Left GSV is surgically absent, thrombosed left small saphenous vein, per vein mapping obtained 02/05/24
-S/P Appendectomy
-Acute postop blood loss/Anemia (stable without blood transfusion)
-Acute postop atelectasis
-Acute postop hypovolemia with subsequent hypervolemia
Discussed patient care with: Nursing and Care Team
Subjective
Procedure
CABG x 4 (CUAUHTEMOC to LAD, L RA to RPDA, GSV to OM2, GSV to D2)/ Endoscopic harvest/prep of RLE GSV/Endoscopic harvest/prep of L RA, by Dr. Tellez, 02/09/24
-
Date of Service: February 12, 2024
Objective Data
-
Lab Results
02/12/24 03:34
02/12/24 03:34
PT 15.3 Sec (11.4-14.6) H 02/09/24 14:45
INR 1.23 02/09/24 14:45
APTT 102.9 Sec (23.4-35.0) H 02/09/24 02:56
Vital Signs
Vital Signs
Temp Pulse Resp BP Pulse Ox
98.7 F 64 20 108/62 94
02/12/24 04:00 02/12/24 04:31 02/12/24 04:00 02/12/24 04:31 02/12/24 04:31
CT Intake/Output/Weight
02/11/24 02/11/24 02/12/24
06:59 18:59 06:59
Intake Total 90 / 216.4 660 / 660
Output Total 720 / 1220 1935 / 2735 800 / 2735
Balance -630 / -1003.6 -1275 / -2075 -800 / -2075
SaO2: 94
Physical Exam
-
General: Awake and AOx3
Cardiovascular: Regular rate & rhythm, No Murmurs and No Rub
Respiratory: Clear and Decreased Breath Sounds
Sternum: Stable
Incision: Clean, Dry and Intact
Extremities: No Edema (2+DPs b/l)
Data Reviewed
-
Lab Results: Results Reviewed
Medications: Active Meds Reviewed
Chest X-Ray: Image Reviewed
ECG: Report Reviewed and Image Reviewed
[2024-02-12] MEDS: ZOLOFT 100 MG PO (08:54)
[2024-02-12] MEDS: BACTROBAN 2% OINTMENT 1 APPLIC NASAL ×2 (08:54→19:26)
[2024-02-12] MEDS: NEURONTIN 100 MG PO ×3 (08:54→22:17)
[2024-02-12] MEDS: PACERONE 200 MG PO ×3 (08:54→22:17)
[2024-02-12] MEDS: PLAVIX 75 MG PO (08:54)
[2024-02-12] MEDS: PROTONIX 40 MG PO (08:54)
[2024-02-12] MEDS: LOW STRENGTH ASPIRIN 81 MG PO (08:54)
[2024-02-12] MEDS: LOPRESSOR 12.5 MG PO ×2 (08:56→19:28)
[2024-02-12] MEDS: KCL 40 MEQ PO (08:56)
[2024-02-12] MEDS: DULCOLAX 5 MG PO (08:56)
[2024-02-12] MEDS: SENOKOT-S 1 TABLET PO ×2 (08:56→19:28)
[2024-02-12] MEDS: MAGNESIUM OXIDE 500 MG PO ×2 (08:56→19:27)
[2024-02-12] MEDS: NORVASC 2.5 MG PO (08:57)
[2024-02-12] MEDS: LIDOCAINE 4% PATCH TOPICAL ×2 (08:57→10:24)
[2024-02-12] MEDS: LASIX 40 MG IV ×2 (08:57→16:57)
--- NOTE | 2024-02-12 09:18 | PN.CDI ---
CDI
- -
CDI:
Physician Documentation Request
Admit Date: 02/05/24 11:[address] surgery,
Clinical Indicators:
Patient admitted with multivessel CAD; s/p CABG x 4 02/08.
Sa02 :
02/10/24
20:41 02/11/24
23:30
SaO2 88 88
Nasal Cannula flow liters per minute 4
02 requirements:
02/10/24
14:00 02/10/24
16:00 02/11/24
08:00
Nasal Cannula flow liters per minute 3 4 3
02/11/24
20:00 02/12/24
00:00 02/12/24
08:16
Nasal Cannula flow liters per minute 2 4 3
Please clarify which of the following accurately represents the patient's respiratory status following surgery:
Acute pulmonary insufficiency (following surgery)
Hypoxia only
Other
*Additional information for Pulmonary Insufficiency:
Consider when patients require laborer marine terminal oxygen therapy postoperatively
Weaned off oxygen initially then requiring supplemental oxygen
No other definitive diagnosis to support the need for oxygen (COPD exac, CHF etc.)
Unable to wean from vent
When criteria for respiratory failure not present
May extend stay or require additional resources; may need home O2
Use of terms such as suspected, likely, concern for, or probable (associated with a specific diagnosis that is being evaluated, monitored, or treated as if it exists) are acceptable and can be coded in the inpatient setting, when documented at the
time of discharge.
Thank you,
CHRIS Pradhan RN
CDI Specialist
available via tiger text
Please use your independent medical judgment in providing your response.
--- NOTE | 2024-02-12 09:31 | PTCARENOTE ---
Patient received from market news reporter resting oob in chair, AAO X 3, denies pain. Patient Maltese speaking, language line utilized. NSR via cm, SaO2 @ 93% on 3lnc. RIJ Cordis w/kvo infusing. All procedural sites stable. See work list for full assessment
and interventions performed.
[2024-02-12] MEDS: MUCINEX 600 MG PO ×2 (09:51→19:28)
--- NOTE | 2024-02-12 10:25 | W.PN.CD ---
Today's Communication / Plan
-
stable. remains in NSR
continue post op care per CT surgery
Hb 8.1 montior
Impression / Plan
-
Impression/Plan: 68-year-old male with a PMH significant for CAD s/p [place] and multiple MILES, [place] 05/14/2012 requiring MILES x 2 RCA, HTN, HLD, and Tobacco abuse (current everyday smoker 1PPD x 40 yrs) admitted to [facility] after elective
outpatient cardiac catheterization revealed severe multivessel disease for inpatient CABG.
#-S/P CABG x4 (LIMT to LAD, LRA to RPDA, SVG to OM2, SVG to D2) with Dr. Tellez on 02/09/2024.
-s/p prior PCI.
-Cath shows multivessel CAD.
-S/P CABG x4 (LIMT to LAD, LRA to RPDA, SVG to OM2, SVG to D2) with Dr. Tellez on 02/09/2024.
- In sinus
- continue post op care per Ct surgery
# post op anemia Hb 8.1. Monitor
.
#HTN -monitor post op
-
#HLD
-Continue atorvastatin.
#Transaminitis
-Stable.
-Monitor.
Subjective/Interval History:
Weight up an additional 1.7 kg.
SaO2 = 91% on 3LNC.
Hbg down to 7.5 (from 8.6).
Na down to 133 (from 140).
DATA:
Cardiac Catheterization, 02/05/2024:
CORONARY ANGIOGRAPHY
Dominance: Right
Left Main: 50-60% distal stenosis
LAD: The LAD is calcified with 50% proximal and 70% mid stenoses. The distal LAD is free of disease. D1 is moderate in size with trivial luminal disease. D2 is slightly larger than D1 with 30% ostial stenosis
Circumflex: There is a medium sized ramus intermedius with mild disease. There is 40% ostial circumflex stenosis. There is 50% mid circumflex stenosis distal to the origin of a small OM1 and proximal to the takeoff of a medium sized OM 2. The
circumflex terminates with a very small OM 3.
RCA: The RCA is a large dominant severely calcified vessel. There are 2 stents placed at a hospital in [place] in 2011 and the mid RCA. It is not possible to know with certainty whether there is a gap between the stents due to the severity of
the calcification. There is 99% stenosis in the mid RCA possibly at the gap segment with MARQUISE grade II flow into a large PDA.
The RCA terminates with two moderate size posterolateral branches.
CONCLUSIONS
1: Left ventricular enlargement with moderate inferoapical hypokinesis with EF 46%
2: Severe multivessel CAD as described
3. Recommend inpatient CABG with grafting of LAD, either D1 or D2, OM 2, and RPDA
TTE, 02/05/2024:
CONCLUSIONS
Normal left ventricular chamber size. Low normal left ventricular systolic
function. Left ventricular ejection fraction is 51% by Galdamez's method. No
gross segmental wall motion abnormalities. Mild concentric left ventricular
hypertrophy. Diastolic function indeterminate.
Top normal right ventricular size. Normal right ventricular function.
Indexed LA volume is mildly abnormal.
Mild to moderate mitral regurgitation.
Mild aortic regurgitation.
Estimated pulmonary artery pressure of 24 mmHg, assuming a right atrial
pressure of 3 mmHg.
Dilated aortic root, 4.6 cm.
No prior study for comparison.
Physical Exam
Vital Signs/Labs
Vital Signs
Temp Pulse Resp BP Pulse Ox
98.4 F 76 17 106/54 93
02/12/24 07:29 02/12/24 09:00 02/12/24 07:29 02/12/24 08:57 02/12/24 08:16
02/11/24 02/12/24 02/13/24
06:59 06:59 06:59
Actual Weight 75 kg 72.8 kg
02/12/24 03:34
02/12/24 03:34
PT 15.3 Sec (11.4-14.6) H 02/09/24 14:45
INR 1.23 02/09/24 14:45
APTT 102.9 Sec (23.4-35.0) H 02/09/24 02:56
Magnesium 2.0 mg/dl (1.6-2.3) 02/12/24 03:34
Triglycerides 104 mg/dl (10-149) 02/06/24 04:47
LDL Cholesterol, Calc 38 mg/dl 02/06/24 04:47
VLDL Cholesterol, Calc 20 mg/dl (0-30) 02/06/24 04:47
HDL Cholesterol 81 mg/dl 02/06/24 04:47
Physical Exam
Constitutional: No acute distress
Cardiovascular: Rhythm & rate is regular
Respiratory: Wheeze Absent and Rhonchi Absent
GI: Soft
Neuro/Psych: Alert
Data Reviewed
-
Date of Service: February 12, 2024
Medical Decision Making: Reviewed Test Results
EKG: Report Reviewed by me
Medical Tests (PFT, Pathology etc): Report Reviewed by me
Labs: Labs Reviewed by me
[2024-02-12] MEDS: NSS IV (10:50)
--- NOTE | 2024-02-12 12:02 | PTCARENOTE ---
VS obtained, assessment stable. Lunch ordered.
[2024-02-12] MEDS: TYLENOL PO (13:49)
[2024-02-12] MEDS: LIPITOR 40 MG PO (16:58)
--- NOTE | 2024-02-12 17:10 | PTCARENOTE ---
VS obtained, assessment unchanged. Cordis d/c's as ordered, patient tolerated well. Dinner ordered.
--- NOTE | 2024-02-12 19:45 | PTCARENOTE ---
Received pt from dayshift; pt resting comfortably in chair; language line used during interaction; pt is AAOx4; denies pain; NSR on monitor; VSS; heart sounds audible, right radial, left ulnar, and b/l DP pulses palpable, no edema noted; lungs CTA,
spo2 98% on RA; + BS x4 quadrants, abdomen soft non tender; pt voiding clear yellow urine; surgical sites maintained; PIV maintained; CHG wipes provided, gown and leads changed; call tena within reach; will continue to monitor.
[2024-02-13] VITALS: BP 102/61
--- NOTE | 2024-02-13 | PTCARENOTE ---
Pt assessment unchanged; VSS, NSR on monitor; 2 LNC over night, per CVPA; pt resting comfortably in bed; call tena within reach; will continue to monitor.
--- NOTE | 2024-02-13 04:00 | PTCARENOTE ---
Pt assessment unchanged; NSR on monitor, VSS; pt resting comfortably in bed; new IV placed, previous one leaking; labs drawn and sent; call tena within reach; will continue to monitor.
[2024-02-13 04:10] VITALS: BP 118/63
[2024-02-13 04:20] LABS: Hematocrit 25.8 % (39.0-52.0); Hemoglobin 8.7 g/dL (13.0-18.0); Mean Corp Hgb Conc. 33.7 g/dL (33.0-37.0); Mean Corpuscular Hgb 31.3 pg (27.0-31.0); Mean Corpuscular Volume 92.8 fL (80.0-94.0); Mean Platelet Volume 10.2 fL (7.4-10.4); Platelet Count 204 10^3/uL (130-400); Red Blood Cell Count 2.78 10^6/uL (4.70-6.10); Red Cell Dist. Width 12.9 % (11.5-14.5); White Blood Cell Count 7.2 10^3/uL (4.8-10.8)
[2024-02-13 04:44] LABS: Blood Urea Nitrogen 14 mg/dl (9-20); Carbon Dioxide 28 mmol/L (22-30); Chloride 102 mmol/L (98-107); Estimated Creatinine Clearance 118 ml/min; Glucose 115 mg/dl (70-99); Potassium 3.9 mmol/L (3.5-5.1); Sodium 135 mmol/L (135-145); eGFR > 60.00
--- NOTE | 2024-02-13 04:56 | W.PN.CT ---
Addendum entered and electronically signed by FITO Varela 02/13/24 10:23:
CDI inquiry:
Acute pulmonary insufficiency (following surgery)
Original Note:
Today's Communication / Plan
-
-pod #4
-no issues overnight, ambulates
-hg stable - 8.7
-weaning off O2
-current meds (ASA, Plavix, Norvasc for radial graft, Lopressor, Amio, Lipitor, Protonix, Mucinex)
-likely d/c home
Assessment / Plan
-
Assessment:
-S/P CABG x 4 (CUAUHTEMOC to LAD, L RA to RPDA, GSV to OM2, GSV to D2)/ Endoscopic harvest/prep of RLE GSV/Endoscopic harvest/prep of L RA, by Dr. Tellez, 02/09/24, pod#4
-Multivessel CAD including 50-60% distal LM
-Abnormal stress test
-Hx inferior [place] S/P MILES x2 to RCA, 05/14/2012 @ [place], [place]
-Mild MR
-Mild TR
-Sinus bradycardia with 1st deg AVB
-LVEF 51% per echo 02/05/24; 50-55% and improved to 55-60% per intraop LIZETH
-HTN
-HLD
-Active tobacco abuse (40 pk/yr)
-COPD
-Left GSV is surgically absent, thrombosed left small saphenous vein, per vein mapping obtained 02/05/24
-S/P Appendectomy
-Acute postop blood loss/Anemia (stable without blood transfusion)
-Acute postop atelectasis
-Acute postop hypovolemia with subsequent hypervolemia
Discussed patient care with: Nursing and Care Team
Subjective
Procedure
CABG x 4 (CUAUHTEMOC to LAD, L RA to RPDA, GSV to OM2, GSV to D2)/ Endoscopic harvest/prep of RLE GSV/Endoscopic harvest/prep of L RA, by Dr. Tellez, 02/09/24
-
Date of Service: February 13, 2024
Objective Data
-
Lab Results
02/13/24 04:08
PT 15.3 Sec (11.4-14.6) H 02/09/24 14:45
INR 1.23 02/09/24 14:45
APTT 102.9 Sec (23.4-35.0) H 02/09/24 02:56
Vital Signs
Vital Signs
Temp Pulse Resp BP Pulse Ox
97.8 F 71 18 102/61 93
02/13/24 00:00 02/13/24 00:30 02/12/24 19:17 02/13/24 00:00 02/13/24 00:00
CT Intake/Output/Weight
02/12/24 02/12/24 02/13/24
06:59 18:59 06:59
Intake Total 470 / 470
Output Total 800 / 2735 1000 / 1000
Balance -800 / -2075 -530 / -530
SaO2: 93
Physical Exam
-
General: Awake and AOx3
Cardiovascular: Regular rate & rhythm, No Murmurs and No Rub
Respiratory: Clear
Sternum: Stable
Incision: Clean, Dry and Intact
Extremities: No Edema
Data Reviewed
-
Lab Results: Results Reviewed
Medications: Active Meds Reviewed
Chest X-Ray: Report Reviewed and Image Reviewed
ECG: Report Reviewed and Image Reviewed
[2024-02-13 06:00] VITALS: BMI 21.5
[2024-02-13] MEDS: TYLENOL 1000 MG PO (07:00)
--- NOTE | 2024-02-13 07:20 | W.PN.CD ---
Today's Communication / Plan
-
Start lisinopril 2.5 mg daily.
Hold home amlodipine/ramipril.
Furosemide 40 mg PO daily x1 week.
BMP in one week.
Stable for outpatient follow up.
Impression / Plan
-
Impression/Plan: 68-year-old male with a PMH significant for CAD s/p [place] and multiple MILES, [place] 05/14/2012 requiring MILES x 2 RCA, HTN, HLD, and Tobacco abuse (current everyday smoker 1PPD x 40 yrs) admitted to [facility] after elective
outpatient cardiac catheterization revealed severe multivessel disease for inpatient CABG.
#CAD
-Chronic, progressive.
-s/p prior PCI.
-Cath shows multivessel CAD.
-S/P CABG x4 (LIMT to LAD, LRA to RPDA, SVG to OM2, SVG to D2) with Dr. Tellez on 02/09/2024.
-Routine post operative management, progressing normally.
-Continue amiodarone, aspirin, atorvastatin, clopidogrel, metoprolol.
-Continue furosemide 40 mg PO x 1 week.
-Incentive spirometry.
-Ambulation.
#Post op anemia
-Acute.
-Hb 8.7 after transfusion and diuresis.
-Monitor over time.
#HTN
-Chronic, stable.
-Stable on metoprolol.
-Start lisinopril 2.5 mg (for CAD).
-Hold home ramipril/amlodipine. These can be readded as an outpatient if needed.
#HLD
-Chronic, stable.
-Continue atorvastatin.
#Transaminitis
-Stable.
-Monitor.
Subjective/Interval History:
Weight is near [place].
CT surgery planning on discharge today.
DATA:
Cardiac Catheterization, 02/05/2024:
CORONARY ANGIOGRAPHY
Dominance: Right
Left Main: 50-60% distal stenosis
LAD: The LAD is calcified with 50% proximal and 70% mid stenoses. The distal LAD is free of disease. D1 is moderate in size with trivial luminal disease. D2 is slightly larger than D1 with 30% ostial stenosis
Circumflex: There is a medium sized ramus intermedius with mild disease. There is 40% ostial circumflex stenosis. There is 50% mid circumflex stenosis distal to the origin of a small OM1 and proximal to the takeoff of a medium sized OM 2. The
circumflex terminates with a very small OM 3.
RCA: The RCA is a large dominant severely calcified vessel. There are 2 stents placed at a hospital in [place] in 2011 and the mid RCA. It is not possible to know with certainty whether there is a gap between the stents due to the severity of
the calcification. There is 99% stenosis in the mid RCA possibly at the gap segment with MARQUISE grade II flow into a large PDA.
The RCA terminates with two moderate size posterolateral branches.
CONCLUSIONS
1: Left ventricular enlargement with moderate inferoapical hypokinesis with EF 46%
2: Severe multivessel CAD as described
3. Recommend inpatient CABG with grafting of LAD, either D1 or D2, OM 2, and RPDA
TTE, 02/05/2024:
CONCLUSIONS
Normal left ventricular chamber size. Low normal left ventricular systolic
function. Left ventricular ejection fraction is 51% by Galdamez's method. No
gross segmental wall motion abnormalities. Mild concentric left ventricular
hypertrophy. Diastolic function indeterminate.
Top normal right ventricular size. Normal right ventricular function.
Indexed LA volume is mildly abnormal.
Mild to moderate mitral regurgitation.
Mild aortic regurgitation.
Estimated pulmonary artery pressure of 24 mmHg, assuming a right atrial
pressure of 3 mmHg.
Dilated aortic root, 4.6 cm.
No prior study for comparison.
Physical Exam
Vital Signs/Labs
Vital Signs
Temp Pulse Resp BP Pulse Ox
36.6 C 71 18 102/61 93
02/13/24 00:00 02/13/24 00:30 02/12/24 19:17 02/13/24 00:00 02/13/24 04:47
02/11/24 02/12/24 02/13/24
11:59 11:59 11:59
Actual Weight 75 kg 72.8 kg 72 kg
02/13/24 04:08
02/13/24 04:07
PT 15.3 Sec (11.4-14.6) H 02/09/24 14:45
INR 1.23 02/09/24 14:45
APTT 102.9 Sec (23.4-35.0) H 02/09/24 02:56
Magnesium 2.0 mg/dl (1.6-2.3) 02/13/24 04:07
Triglycerides 104 mg/dl (10-149) 02/06/24 04:47
LDL Cholesterol, Calc 38 mg/dl 02/06/24 04:47
VLDL Cholesterol, Calc 20 mg/dl (0-30) 02/06/24 04:47
HDL Cholesterol 81 mg/dl 02/06/24 04:47
Physical Exam
Constitutional: No acute distress and Comfortable
EENT: Anicteric and Moist mucous membranes
Cardiovascular: Rhythm & rate is regular, Pedal edema is absent, JVD pressure is normal, S1S2 is normal and Murmur/rub/gallop absent
Respiratory: Respiratory effort normal, Lungs clear to auscul., Wheeze Absent, Crackles Absent and Rhonchi Absent
GI: Soft, Distention absent, Flat, Non tender and Normal bowel sounds
Neuro/Psych: AO x 3
Data Reviewed
-
Date of Service: February 13, 2024
Medical Decision Making: Reviewed Test Results, Independent Historian Assessment, Test Interpretation and Review of Case with other Provider
EKG: Tracing Personally Visualized and interpreted and Report Reviewed by me
Echo: Report Reviewed by me
X-Ray/CT/US/MRI/NUC/PET: Image Personally Visualized and interpreted and Report Reviewed by me
Medical Tests (PFT, Pathology etc): Report Reviewed by me
Labs: Labs Reviewed by me
Old Records: Reviewed
--- NOTE | 2024-02-13 08:00 | PTCARENOTE ---
Assumed care of patient from maintenance supervisor 2nd shift RN, AAO ambulating in room at evens. SR on monitor. Room air 95%. IS to 2000. Abdomen soft and non tender. Voiding independently. Pulses palpable. LT ulnar pulse palpable. Surgical sites well
approximated and intact. Using language line solar pool heating installer pt informed of plan for day. Pt denied questions,.
[2024-02-13 08:09] VITALS: BP 98/60
[2024-02-13] MEDS: MAGNESIUM OXIDE 500 MG PO (08:49)
[2024-02-13] MEDS: PROTONIX 40 MG PO (08:49)
[2024-02-13] MEDS: LIDOCAINE 4% PATCH TOPICAL (08:50)
[2024-02-13] MEDS: NEURONTIN 100 MG PO (08:50)
[2024-02-13] MEDS: LOW STRENGTH ASPIRIN 81 MG PO (08:50)
[2024-02-13] MEDS: PACERONE 200 MG PO (08:50)
[2024-02-13] MEDS: SENOKOT-S 1 TABLET PO (08:50)
[2024-02-13] MEDS: MUCINEX 600 MG PO (08:50)
[2024-02-13] MEDS: BACTROBAN 2% OINTMENT 1 APPLIC NASAL (08:50)
[2024-02-13] MEDS: PLAVIX 75 MG PO (08:50)
[2024-02-13] MEDS: NORVASC 2.5 MG PO (08:50)
[2024-02-13] MEDS: ZOLOFT 100 MG PO (08:50)
[2024-02-13] MEDS: LOPRESSOR 12.5 MG PO (08:50)
--- NOTE | 2024-02-13 09:15 | W.DCSUMMARY ---
Discharge Summary
Discharge Data
Date of Admission: 02/05/24
Date of Discharge: 02/13/24
Total time spent discharging patient (in min): 35
-
Pending Results: No
Hospital Course
Primary care physician:
Dr. Cristina Emerson
Outpatient admin dir:
Dr. Borja
Inpatient consultants:
CBC, ladle repairer
Procedures:
1. Coronary artery bypass grafting x 4 (L ANANTH to LAD, left radial artery to RPDA, GSV to OM 2, GSV to D2)
Primary Diagnosis:
1. Multivessel coronary artery disease
Secondary Diagnoses:
1. Chronic obstructive pulmonary disease
2. Hypertension
3. Hyperlipidemia
4. Tobacco abuse
HPI: 68-year-old male that presented on 02/03 after a abnormal stress test for a left heart cath was found to have multivessel disease.
Hospital course: Patient was admitted on 02/03 for an elective cath after an abnormal stress test where multivessel disease was found. He was started on a heparin drip and preoperative workup was started. Patient was taken to the OR on 02/08 and
received a CABG x 4. Postoperatively he returned to the CVICU on Levophed, insulin, Precedex, and Cardene infusions. Patient's Precedex was weaned off and he was extubated by 174. On 02/09 postoperative day #1 patient's Levophed was weaned off
and Mane catheter was removed. Chest tubes remain due to output. On postoperative day #2 patient was given 1 unit of packed red blood cells for hemoglobin of 7.5. Cardene was weaned off and beta-blockers and Norvasc was started. He was diuresed
with 40 mg of IV Lasix and chest tubes were removed. On 02/11 postoperative day #3 patient was given 40 mg of IV Lasix and bowel regimen was increased. On 02/12 patient was deemed stable for discharge. 2 view chest x-ray remained stable.
Medications were sent to his preferred pharmacy.
Home medication changes:
See below
Discharge Plan
-
Patient Disposition: Home (Routine Discharge)
Discharge Diagnosis/Procedures: CAD/CABG
Condition: Good
Diet: Low Cholesterol and Low Sodium
Activity: No strenuous activity
Driving Restrictions: Not until seen by your Dr
Bathing Restrictions: OK to Shower
Other Services: Cardiac Rehab
Specialty Instructions: Weigh Daily- Call MD for wt gain/loss 3 lbs overnight/5 lbs in 1 week
Activity Restrictions/Additional Instructions:
ACTIVITY:
-No strenuous activity: no heavy lifting, pushing, pulling anything over 15 pounds for one month
-continue to use stairs as tolerated
DRIVING RESTRICTIONS:
-No driving for one month or until approved by your surgeon
WOUND CARE:
-Shower daily. Use soap & water.
-No lotions, creams or powders on incision area.
DIET:
-continue a low fat/low cholesterol diet.
-IF you are diabetic, continue carb controlled diet.
CARDIAC REHAB:
-Please make appointment to start in 5-6 weeks with your local hospital program. (See Cardiac Rehabilitation Discharge Booklet).
SPECIALTY INSTRUCTIONS:
-Weigh yourself daily. Call your physician for any weight gain/loss of 3 lbs overnight or 5 lbs in one week.
-REPORT any clicking noise or uneven appearance of your sternum to your surgeon immediately.
-If you smoke, you are instructed to quit. The [place] smoking hotline phone number is [phone]
Referrals:
Immediate, visiting nurse [Other] (FAX [phone])
Gilson Royal MD [Active] - in three to four weeks (Follow up lung nodule and COPD evaluation. May see EMAIL MARKETING EXECUTIVE)
Tony Borja MD [Active] - 04/05/24 2:00 pm
Luis Daniel Tellez MD [Active] - 03/16/24 1:30 pm
Cristina Emerson MD [Family Provider] -
Additional Discharge Medication Instructions: Please be aware your dose of amlodipine and metoprolol has changed. Stop taking your Ramipril until directed by a doctor to restart.
Prescriptions:
New
amlodipine 2.5 mg Tablet
2.5 mg PO DAILY Qty: 60 1RF
clopidogrel 75 mg Tablet
75 mg PO DAILY Qty: 30 0RF
metoprolol succinate [Toprol XL] 25 mg tablet extended release 24 hr
25 mg PO .nightly Qty: 60 0RF
tramadol 50 mg Tablet
25 mg PO Q6HPRN PRN (Reason: severe pain) Qty: 15 0RF
pantoprazole 40 mg Tablet,Delayed Release (Dr/Ec)
40 mg PO DAILY Qty: 30 0RF
gabapentin 100 mg Capsule
100 mg PO TID Qty: 30 0RF
Continued
aspirin 81 mg Tablet,Chewable
81 mg PO DAILY
atorvastatin 40 mg Tablet
40 mg PO QPM
sertraline 100 mg Tablet
100 mg PO DAILY
folic acid 1 mg Tablet
1 mg PO DAILY
vitamin B complex Capsule
1 cap PO DAILY
cholecalciferol (vitamin D3) [Vitamin D3] 50 mcg (2,000 unit) Tablet
50 mcg PO DAILY
Discontinued
amlodipine 10 mg Tablet
10 mg PO DAILY
ramipril 10 mg Tablet
10 mg PO BID
metoprolol succinate 50 mg Tablet Extended Release 24 Hr
50 mg PO DAILY
Discharge Orders:
Discharge Patient (As Directed); Ordered 02/13/24
Ordered By: Marilyn Hunt
Care Plan Goals
Care Plan Goals:
Problem: Readiness for enhanced knowledge related to diagnosis and treatment plan
Goal: Understand your diagnosis and treatment plan needs, including medications if applicable.
Instructions: Know your diagnosis, underlying causes and treatment plan options, including medications if applicable. Consult with your health care team to learn about your diagnosis and treatment plan, including medications if applicable.
Discharge Date and Time
Print Language: Nicaraguan
[2024-02-13] MEDS: KCL 40 MEQ PO (10:01)
[2024-02-13] MEDS: LASIX 40 MG PO (10:01)
[2024-02-13 11:06] VITALS: BP 117/66
[2024-02-13 11:33] VITALS: BP 112/76
[2024-02-13 11:36] VITALS: BP 112/76; BP 117/66; PULSE 72; O2SAT 96; O2SAT 98
--- NOTE | 2024-02-13 14:02 | PTCARENOTE ---
Pt showered self without any difficulty. Then shaved his face and dressed himself after. Int removed. Using language line public relations specialist discharge instructions reviewed with patient. Questions answered. Assisted pt with packing up belongings.
Awaiting ride.
--- NOTE | 2024-02-13 15:12 | CM ---
Immediate [facility] agency aware that they need to call patient for exact visit location as he may go to his ex-'s home.
== END 2024-02-13 14:45 | disposition home health service (06) | DRG 233 ==
LOC: CVICU 11:51
PROVIDERS: Anesthesiology; Nurse Practitioner; Nurse Practitioner Adult Health; Physician Assistant Medical; ADMITTING PHYSICIAN Internal Medicine Cardiovascular Disease; ATTENDING PHYSICIAN Thoracic Surgery (Cardiothoracic Vascular Surgery); CONSULT PHYSICIAN Internal Medicine Critical Care Medicine; FAMILY PHYSICIAN Family Medicine
PROC: B2111ZZ Fluoroscopy of Multiple Coronary Arteries using Low Osmolar Contrast (ICD-10-PCS; 2024-02-05)
PROC: 4A023N7 Measurement of Cardiac Sampling and Pressure, Left Heart, Percutaneous Approach (ICD-10-PCS; 2024-02-05)
PROC: B2151ZZ Fluoroscopy of Left Heart using Low Osmolar Contrast (ICD-10-PCS; 2024-02-05)
PROC: 06BP4ZZ Excision of Right Saphenous Vein, Percutaneous Endoscopic Approach (ICD-10-PCS; 2024-02-09)
PROC: 021109W Bypass Coronary Artery, Two Arteries from Aorta with Autologous Venous Tissue, Open Approach (ICD-10-PCS; 2024-02-09)
PROC: 02100ZC Bypass Coronary Artery, One Artery from Thoracic Artery, Open Approach (ICD-10-PCS; 2024-02-09)
PROC: 5A1221Z Performance of Cardiac Output, Continuous (ICD-10-PCS; 2024-02-09)
PROC: 03BB4ZZ Excision of Right Radial Artery, Percutaneous Endoscopic Approach (ICD-10-PCS; 2024-02-09)
PROC: 02100AW Bypass Coronary Artery, One Artery from Aorta with Autologous Arterial Tissue, Open Approach (ICD-10-PCS; 2024-02-09)
PROC: B24BZZ4 Ultrasonography of Heart with Aorta, Transesophageal (ICD-10-PCS; 2024-02-09)
PROC: 30233N1 Transfusion of Nonautologous Red Blood Cells into Peripheral Vein, Percutaneous Approach (ICD-10-PCS; 2024-02-11)
DX: I25.10 Atherosclerotic heart disease of native coronary artery without angina pectoris (principal); J95.1 Acute pulmonary insufficiency following thoracic surgery; D62 Acute posthemorrhagic anemia; J98.11 Atelectasis; I10 Essential (primary) hypertension; E78.5 Hyperlipidemia, unspecified; F17.210 Nicotine dependence, cigarettes, uncomplicated; R16.0 Hepatomegaly, not elsewhere classified; J43.9 Emphysema, unspecified; R91.1 Solitary pulmonary nodule; F41.9 Anxiety disorder, unspecified; Y83.2 Surgical operation with anastomosis, bypass or graft as the cause of abnormal reaction of the patient, or of later complication, without mention of misadventure at the time of the procedure; E86.1 Hypovolemia; E87.70 Fluid overload, unspecified; I25.2 Old myocardial infarction; Z79.82 Long term (current) use of aspirin; Z79.899 Other long term (current) drug therapy; Z82.49 Family history of ischemic heart disease and other diseases of the circulatory system; Z95.5 Presence of coronary angioplasty implant and graft
CPT/HCPCS: 36600; 70355; 71045; 71046; 71250; 74176; 80048; 80053; 80061; 80076; 81003; 81015; 82330; 82565; 82805; 82947; 82962; 83036; 83735; 84132; 84302; 84520; 85014; 85018; 85027; 85049; 85610; 85730; 86850; 86900; 86901; 86920; 93005; 93306; 93312; 93320; 93325; 93458; 93880; 93931; 93970; 94002; 99406; C1894; P9016; P9045; Q9967

== ENCOUNTER → 2024-05-24 12:14 | Outpatient (REF) | payer MEDICARE, OTHER, SELFPAY | LOC: RAD 12:14 | PROVIDERS: ATTENDING PHYSICIAN Internal Medicine Critical Care Medicine; FAMILY PHYSICIAN Family Medicine | DX: R91.1 Solitary pulmonary nodule (principal) | CPT/HCPCS: 71250 ==